=== PATIENT | female | born 1975 | race Caucasian/White ===

== ENCOUNTER 2021-03-03 08:56 | Outpatient (REF) | payer OTHER, SELFPAY ==
--- NOTE | ~2021-03-03 | US_ITS ---
EXAMINATION: LEFT LOWER EXTREMITY VENOUS ULTRASOUND CLINICAL INFORMATION: Pain COMPARISON: None TECHNIQUE: Doppler color and grayscale evaluation of the veins of the left lower extremity FINDINGS: The left common femoral, superficial femoral, and popliteal veins and visualized peroneal and posterior tibial veins in the calf are patent. There is no evidence of DVT. There is a 3.1 x 1.3 x 2 cm Coreas's cyst. US/US venous duplex LE LT IMPRESSION: No evidence of DVT. 3.1 x 1.3 x 2 cm Coreas's cyst. EXAMINATION: Left knee x-ray CLINICAL INFORMATION: Pain COMPARISON: None. TECHNIQUE: 3 views of the left knee FINDINGS: Bone alignment is normal. No fracture or dislocation is seen. The joint space is normal. There is no significant joint effusion. IMPRESSION: Unremarkable examination.
== END 2021-03-03 08:57 | disposition home or self-care (01) ==
LOC: HO.US 08:56
PROVIDERS: PCP Internal Medicine; Visit Provider Internal Medicine
DX: M79.605 Pain in left leg (principal); M79.89 Other specified soft tissue disorders; M25.562 Pain in left knee
CPT/HCPCS: 73562; 93971

== ENCOUNTER → 2021-06-17 11:25 | Outpatient (REF) | payer OTHER, SELFPAY ==
--- NOTE | 2021-06-17 11:59 | ECG_ITS ---
Test Reason : PREOP Blood Pressure : / mmHG Vent. Rate : 073 BPM Atrial Rate : 073 BPM P-R Int : 150 ms QRS Dur : 088 ms QT Int : 376 ms P-R-T Axes : 044 051 023 degrees QTc Int : 414 ms Normal sinus rhythm Normal ECG When compared with ECG of 23-APR-2013 12:21, No significant change was found Referred By: Timothy Garcia Electronically Signed By:LALITHA MATHEW
[2021-06-17 12:21] LABS: MANUAL DIFF FLAG NO
[2021-06-17 12:23] LABS: Basophils Percent Auto 0.4 % (0-2); Eosinophils Absolute Auto 0.2 X10*3/uL (0.0-0.4); Eosinophils Percent Auto 2.3 % (0-4); Hematocrit 42.4 % (37-47); Imm Gran Abs Auto 0.02 X10*3/uL (0.00-0.03); Imm Gran Pct Auto 0.2 % (0.0-0.4); Lymphocytes Absolute Auto 2.7 X10*3/uL (1.2-4.9); Lymphocytes Percent Auto 32.6 % (20-40); Mean Corpuscular Hemoglobin 28.6 pg (27.0-33.0); Mean Corpuscular Volume 86.7 fL (80-98); Mean Platelet Volume 10.4 fL (9.4-12.3); Monocytes Absolute Auto 0.6 X10*3/uL (0.1-1.2); Monocytes Percent Auto 6.8 % (2-11); Neutrophils Absolute Auto 4.8 X10*3/uL (2.0-8.3); Neutrophils Percent Auto 57.7 % (45-73); Platelet Count 293 X10*3/uL (160-400); Red Blood Count 4.89 X10*6/uL (4.20-5.50); Red Cell Distribution Width 13.5 % (11.0-16.0); White Blood Count 8.2 X10*3/uL (4.8-10.8)
[2021-06-17 12:29] LABS: Prothrombin Time 11.2 SEC (9.9-13.0)
[2021-06-17 12:32] LABS: Partial Thromboplastin Time 37.6 SEC (24.1-38.0)
[2021-06-17 12:40] LABS: Appearance Urine CLEAR; Color Urine YELLOW; Glucose Urine UA NEG (NEG); Leukocyte Esterase Urine NEG (NEG); Nitrite Urine NEG (NEG); PH 5.5 (5.0-8.0); Specific Gravity - Urine >= 1.030 (1.005-1.025); UACC Culture Trigger NO; Urine Blood NEG (NEG); Urine Ketones NEG (NEG); Urine Protein 2+ MG/DL (NEG-TRACE)
[2021-06-17 12:42] LABS: Estimated Average Glucose 105 mg/dL; Hemoglobin A1c % 5.3 %
[2021-06-17 12:55] LABS: WBC Urine 0 /HPF (0-4)
[2021-06-17 12:56] LABS: Mucus Urine 2+ /LPF; RBC Urine 0 /HPF (0); Squamous Epithelial Cell Urine 2+ /LPF
[2021-06-17 13:10] LABS: Alanine Aminotransferase 32 U/L (0-31); Albumin Level 4.4 g/dL (3.5-5.0); Alkaline Phosphatase 68 U/L (39-117); Anion Gap 10 (12-20); Aspartate Amino Transferase 26 U/L (5-31); Bilirubin Total 0.5 mg/dL (0.0-1.0); Blood Urea Nitrogen 11 mg/dL (9-16); Calcium 9.9 mg/dL (8.4-10.2); Carbon Dioxide 28 mmol/L (22-29); Chloride 106 mmol/L (96-108); Erythrocyte Sedimentation Rate 6 MM/HR (0-20); Estimated Glomerular Filt Rate > 60; Glucose Random 95 mg/dL (60-115); Potassium 4.4 mmol/L (3.3-5.1); Sodium 140 mmol/L (135-145); Total Protein 7.2 g/dL (6.5-8.0); Uric Acid 4.9 mg/dL (2.4-5.7)
[2021-06-17 13:32] LABS: TSH reflex Free T4 1.16 uIU/mL (0.32-4.0)
== END ==
LOC: HO.CARD 11:25
PROVIDERS: PCP Internal Medicine; Visit Provider Internal Medicine
DX: Z01.818 Encounter for other preprocedural examination (principal); I10 Essential (primary) hypertension; M25.562 Pain in left knee; M79.605 Pain in left leg; M79.89 Other specified soft tissue disorders; R73.01 Impaired fasting glucose
CPT/HCPCS: 36415; 80053; 81001; 83036; 84443; 84550; 85025; 85610; 85652; 85730; 93005

== ENCOUNTER → 2021-07-13 10:18 | Outpatient (BNVA) | payer OTHER, SELFPAY | PROVIDERS: PCP Internal Medicine; Visit Provider Nurse Practitioner Family | DX: M51.36 Other intervertebral disc degeneration, lumbar region (principal); M79.7 Fibromyalgia | CPT/HCPCS: 99212 ==

== ENCOUNTER → 2022-06-07 09:49 | Outpatient (REF) | payer OTHER, SELFPAY | LOC: HO.SL 09:49 | PROVIDERS: PCP Internal Medicine; Visit Provider Nurse Practitioner Family | DX: G47.33 Obstructive sleep apnea (adult) (pediatric) (principal); G47.00 Insomnia, unspecified; E66.01 Morbid (severe) obesity due to excess calories; Z68.41 Body mass index [BMI] 40.0-44.9, adult; R53.83 Other fatigue | CPT/HCPCS: 95806 ==

== ENCOUNTER → 2022-07-05 09:44 | Outpatient (BNVA) | payer OTHER, SELFPAY | PROVIDERS: PCP Internal Medicine; Visit Provider Internal Medicine | DX: G47.33 Obstructive sleep apnea (adult) (pediatric) (principal); E66.01 Morbid (severe) obesity due to excess calories; F17.210 Nicotine dependence, cigarettes, uncomplicated; Z68.41 Body mass index [BMI] 40.0-44.9, adult | CPT/HCPCS: 99202 ==

== ENCOUNTER 2022-07-19 10:14 | Outpatient (REF) | payer OTHER, SELFPAY ==
[2022-07-19 10:31] LABS: MANUAL DIFF FLAG NO
[2022-07-19 11:50] LABS: Estimated Average Glucose 108 mg/dL; Hemoglobin A1c % 5.4 %
[2022-07-19 11:51] LABS: Basophils Percent Auto 0.5 % (0-2); Eosinophils Absolute Auto 0.1 X10*3/uL (0.0-0.4); Eosinophils Percent Auto 1.7 % (0-4); Hematocrit 41.3 % (37.0-47.0); Hemoglobin 13.7 g/dl (12.0-16.0); Imm Gran Abs Auto 0.04 X10*3/uL (0.00-0.03); Imm Gran Pct Auto 0.5 % (0.0-0.4); Lymphocytes Absolute Auto 2.7 X10*3/uL (1.2-4.9); Lymphocytes Percent Auto 33.5 % (20-40); Mean Corpuscular HGB Conc 33.2 g/dl (31.0-35.0); Mean Corpuscular Hemoglobin 28.5 pg (27.0-33.0); Mean Corpuscular Volume 85.9 fL (80.0-98.0); Mean Platelet Volume 10.8 fL (9.4-12.3); Monocytes Absolute Auto 0.4 X10*3/uL (0.1-1.2); Monocytes Percent Auto 4.4 % (2-11); Neutrophils Absolute Auto 4.8 x10*3/uL (2.0-8.3); Neutrophils Percent Auto 59.4 % (45-73); Platelet Count 306 X10*3/uL (160-400); Red Blood Count 4.81 X10*6/uL (4.20-5.50); Red Cell Distribution Width 13.2 % (11.0-16.0); White Blood Count 8.1 X10*3/uL (4.8-10.8)
[2022-07-19 11:53] LABS: Appearance Urine Cloudy; Color Urine Yellow; Glucose Urine UA Negative (Negative); Leukocyte Esterase Urine Negative (Negative); Nitrite Urine Negative (Negative); PH 5.5 (5.0-9.0); Specific Gravity - Urine 1.025 (1.005-1.025); UMIC TRIGGER UACC YES; Urine Blood Negative (Negative); Urine Ketones Negative (Negative); Urine Protein 100 (2+) mg/dL (Neg-Trace)
[2022-07-19 12:03] LABS: Bacteria Urine 4+ (None Seen); Hyaline Casts Urine 0-2 /LPF (0-2); RBC Urine 0-2 /HPF (0-2); Squamous Epithelial Cell Urine >20 /HPF (0-2); UACC Culture Trigger YES
[2022-07-19 12:56] LABS: Alanine Aminotransferase 13 U/L (0-31); Albumin Level 4.3 g/dL (3.5-5.0); Alkaline Phosphatase 59 U/L (39-117); Anion Gap 15 (12-20); Aspartate Amino Transferase 13 U/L (5-31); Bilirubin Total 0.3 mg/dL (0.0-1.0); Blood Urea Nitrogen 9 mg/dL (9-16); C Reactive Protein 0.15 mg/dL (< or = 0.50); Calcium 9.5 mg/dL (8.4-10.2); Carbon Dioxide 27 mmol/L (22-29); Chloride 105 mmol/L (96-108); Cholesterol 136 mg/dL; Estimated Glomerular Filt Rate > 60; Glucose Fasting 127 mg/dL (60-99); HDL Cholesterol 32 mg/dL; Potassium 4.5 mmol/L (3.3-5.1); Rheumatoid Factor < 15.0 IU/mL (<15.0); Sodium 142 mmol/L (135-145); Total Protein 7.1 g/dL (6.5-8.0); Triglycerides 420 mg/dL
[2022-07-19 13:00] LABS: TSH reflex Free T4 1.05 uIU/mL (0.32-4.0); Vitamin D 25-OH Total 25.5 ng/mL (>30)
[2022-07-19 13:06] LABS: Erythrocyte Sedimentation Rate 6 MM/HR (0-20)
[2022-07-19 14:06] LABS: Folate 14.5 ng/mL (> or = 4.0); Vitamin B12 377 pg/mL (200-900)
[2022-07-21 12:37] LABS: Anti Nuclear Antibody Screen NEGATIVE (NEGATIVE)
== END 2022-07-19 10:15 | disposition home or self-care (01) ==
LOC: HO.LAB 10:14
PROVIDERS: PCP Internal Medicine; Visit Provider Internal Medicine
DX: Z13.29 Encounter for screening for other suspected endocrine disorder (principal); Z13.220 Encounter for screening for lipoid disorders; E11.9 Type 2 diabetes mellitus without complications; M79.7 Fibromyalgia; M25.50 Pain in unspecified joint; I10 Essential (primary) hypertension
CPT/HCPCS: 36415; 80053; 80061; 81001; 82306; 82607; 82746; 83036; 84443; 85025; 85652; 86038; 86039; 86140; 86431; 87086

== ENCOUNTER → 2022-10-27 09:16 | Outpatient (BNVA) | payer OTHER, SELFPAY | PROVIDERS: PCP Internal Medicine; Visit Provider Internal Medicine Rheumatology | DX: M51.36 Other intervertebral disc degeneration, lumbar region (principal); M79.641 Pain in right hand; M79.642 Pain in left hand; M79.7 Fibromyalgia | CPT/HCPCS: 99202 ==

== ENCOUNTER 2022-10-27 11:02 | Outpatient (REF) | payer OTHER, SELFPAY ==
[2022-10-27 13:57] LABS: MANUAL DIFF FLAG NO
[2022-10-27 13:59] LABS: Basophils Absolute Auto 0.1 X10*3/uL (0.0-0.2); Basophils Percent Auto 0.6 % (0-2); Eosinophils Absolute Auto 0.2 X10*3/uL (0.0-0.4); Eosinophils Percent Auto 2.3 % (0-4); Hematocrit 45.6 % (37.0-47.0); Hemoglobin 14.8 g/dl (12.0-16.0); Imm Gran Abs Auto 0.04 X10*3/uL (0.00-0.03); Imm Gran Pct Auto 0.5 % (0.0-0.4); Lymphocytes Percent Auto 35.7 % (20-40); Mean Corpuscular HGB Conc 32.5 g/dl (31.0-35.0); Mean Corpuscular Volume 86.4 fL (80.0-98.0); Mean Platelet Volume 10.7 fL (9.4-12.3); Monocytes Absolute Auto 0.5 X10*3/uL (0.1-1.2); Monocytes Percent Auto 6.4 % (2-11); Neutrophils Absolute Auto 4.5 x10*3/uL (2.0-8.3); Neutrophils Percent Auto 54.5 % (45-73); Platelet Count 316 X10*3/uL (160-400); Red Blood Count 5.28 X10*6/uL (4.20-5.50); Red Cell Distribution Width 12.9 % (11.0-16.0); White Blood Count 8.3 X10*3/uL (4.8-10.8)
[2022-10-27 14:17] LABS: C Reactive Protein 0.15 mg/dL (< or = 0.50)
[2022-10-27 14:44] LABS: Erythrocyte Sedimentation Rate 5 MM/HR (0-20)
== END 2022-10-27 11:03 | disposition home or self-care (01) ==
LOC: HO.10HDL 11:02
PROVIDERS: Visit Provider Internal Medicine Rheumatology
DX: M79.641 Pain in right hand (principal); M79.642 Pain in left hand; R20.0 Anesthesia of skin; M25.50 Pain in unspecified joint; M51.36 Other intervertebral disc degeneration, lumbar region; M79.7 Fibromyalgia; Z79.899 Other long term (current) drug therapy
CPT/HCPCS: 36415; 85025; 85652; 86140

== ENCOUNTER 2022-11-14 10:58 | Outpatient (REF) | payer OTHER, SELFPAY ==
[2022-11-14 11:45] LABS: MANUAL DIFF FLAG NO
[2022-11-14 11:57] LABS: Basophils Percent Auto 0.5 % (0-2); Eosinophils Absolute Auto 0.2 X10*3/uL (0.0-0.4); Eosinophils Percent Auto 2.5 % (0-4); Hematocrit 43.4 % (37.0-47.0); Imm Gran Abs Auto 0.03 X10*3/uL (0.00-0.03); Imm Gran Pct Auto 0.4 % (0.0-0.4); Lymphocytes Absolute Auto 2.8 X10*3/uL (1.2-4.9); Lymphocytes Percent Auto 35.8 % (20-40); Mean Corpuscular HGB Conc 32.3 g/dl (31.0-35.0); Mean Corpuscular Hemoglobin 27.8 pg (27.0-33.0); Mean Corpuscular Volume 86.3 fL (80.0-98.0); Mean Platelet Volume 10.3 fL (9.4-12.3); Monocytes Absolute Auto 0.5 X10*3/uL (0.1-1.2); Monocytes Percent Auto 5.8 % (2-11); Neutrophils Absolute Auto 4.2 x10*3/uL (2.0-8.3); Platelet Count 300 X10*3/uL (160-400); Red Blood Count 5.03 X10*6/uL (4.20-5.50); Red Cell Distribution Width 13.1 % (11.0-16.0); White Blood Count 7.7 X10*3/uL (4.8-10.8)
[2022-11-14 12:31] LABS: Troponin-I High Sensitivity < 3.5 ng/L (<3.5-17.0)
[2022-11-14 12:34] LABS: Alanine Aminotransferase 24 U/L (0-31); Albumin Level 4.4 g/dL (3.5-5.0); Alkaline Phosphatase 62 U/L (39-117); Anion Gap 12 (12-20); Aspartate Amino Transferase 21 U/L (5-31); Bilirubin Total 0.5 mg/dL (0.0-1.0); Blood Urea Nitrogen 14 mg/dL (9-16); Calcium 10.1 mg/dL (8.4-10.2); Carbon Dioxide 28 mmol/L (22-29); Chloride 106 mmol/L (96-108); Estimated Glomerular Filt Rate > 60; Glucose Random 97 mg/dL (60-115); Potassium 4.2 mmol/L (3.3-5.1); Sodium 142 mmol/L (135-145); Total Protein 7.1 g/dL (6.5-8.0)
[2022-11-14 12:50] LABS: Insulin 37 uU/mL (2-29); TSH reflex Free T4 0.91 uIU/mL (0.32-4.0)
== END 2022-11-14 10:59 | disposition home or self-care (01) ==
LOC: HO.LAB 10:58
PROVIDERS: PCP Internal Medicine; Visit Provider Internal Medicine
DX: R07.9 Chest pain, unspecified (principal); R06.02 Shortness of breath; I10 Essential (primary) hypertension; E78.00 Pure hypercholesterolemia, unspecified; E16.2 Hypoglycemia, unspecified; G47.33 Obstructive sleep apnea (adult) (pediatric); E66.01 Morbid (severe) obesity due to excess calories; F17.200 Nicotine dependence, unspecified, uncomplicated; Z68.41 Body mass index [BMI] 40.0-44.9, adult; Z79.899 Other long term (current) drug therapy
CPT/HCPCS: 36415; 80053; 83525; 84443; 84484; 85025; 99212

== ENCOUNTER 2022-12-13 10:54 | Outpatient (RCR) | payer OTHER, SELFPAY | END 2023-04-13 13:15 | disposition home or self-care (01) | LOC: HO.PT 10:54 | PROVIDERS: PCP Internal Medicine; Visit Provider Internal Medicine Rheumatology | DX: M51.36 Other intervertebral disc degeneration, lumbar region (principal) ==

== ENCOUNTER 2023-07-19 09:40 | Outpatient (AMB) | payer OTHER, SELFPAY ==
[2023-07-19 09:44] VITALS: BP 122/80; PULSE 87; O2SAT 99; BMI 40.7
--- NOTE | 2023-07-19 09:44 | MHC.PC.OV ---
Vital Signs 07/19/23 09:44 Height 5 ft 5 in Weight 244 lb 8 oz BMI 40.7 BP 122/80 Blood Pressure Location Lt brachial Position Sitting Pulse 87 Pulse Source Pulse Oximeter Pulse Oximetry (%) 99 Oxygen Delivery Method Room Air Intake Visit Reasons: 3mth f/u Magnetic Resonance Imaging Director Required: No Accompanied by: Self / Same As Patient Allergies acetaminophen [From Vicodin] Allergy (Unknown, Verified 07/19/23 10:19) nausea hydrocodone [From Vicodin] Allergy (Unknown, Verified 07/19/23 10:19) nausea Anesthesia S/I-40 Allergy (Unknown, Uncoded 07/19/23 10:19) vomiting Medication List - Last Reconciled 07/19/23 by Timothy Garcia MD clonazepam (Klonopin) 0.5 mg PO BID PRN 30 days diclofenac sodium 1% (Arthritis Pain (diclofenac)) 2 grams topical QID gabapentin 100 mg PO BEDTIME 30 days hydroxyzine HCl 50 mg PO DAILY ibuprofen 800 mg PO TID PRN 30 days metoprolol tartrate 50 mg PO BID oxcarbazepine 300 mg PO BID quetiapine ER 300 mg PO BEDTIME sertraline 50 mg PO DAILY tramadol Take 1 tablet 1 to 2 times a day as needed for increased pain; 15 days Tobacco use date assessed: 07/19/23 Dental Screening Dental Screen Date: 07/19/23 Did you have a dental visit in the last 12 months?: Yes Did you have a dental problem in the last 6 months where you did not have access to dental care?: No Was dental information given to patient?: Patient has dentist HPI 3mth f/u HPI Details Patient comes in today for her follow up visit She continues to complain of increased and diffuse pain and would like to get her Tramadol Rx refilled again today States that she often wakes up in the morning lately in severe pain and practically has to roll herself out of bed to get up Relates increased pain over her lower back, over both hips and both knees as well as in both hands Notes that she has also been dropping things at times lately when she is holding them - hands feel numb often and she is concerned whether what she is experiencing may be indicative of possible MS or not States that she cannot sit or stand without getting up and moving around for long periods of time because of her joint pains Is also still experiencing on and off chest pressure and discomfort Did not get to see cardiology as scheduled last April 2023 as she states that she got busy and had to cancel her appointment then; has since been rescheduled to 08/01/23 but states that she recently received a notice from cardiology to give them a call to reschedule her appt again as the doctor scheduled to see her will reportedly not be available at that time She denies any increased SOB lately Still feels nauseous often when she wakes up in the morning and her stomach would also be hurting at times States that all of these would ease up quickly once she gets something to eat so she is concerned about her blood sugar; recalls that she was a diabetic before but has not been on any medications for her blood sugar lately No vomiting and no change in bowel habits noted [facility] Medical History Mixed hyperlipidemia Lumbar degenerative disc disease Morbid obesity with BMI of 40.0-44.9, adult Smoker Blurring of vision Urinary frequency Fatigue Pain and swelling of left lower extremity Left knee pain Surgical History History of cholecystectomy History of tonsillectomy Family History Father Medical history unknown Mother Lung cancer Sister Bipolar 1 disorder Family/Other Breast cancer Hypertension Asthma Social History Housing: Apartment Alcohol intake: never Patient Tobacco Use Status: Current everyday Tobacco user Cigarettes Per Day: 9 e-Cigarette/Vaping Use: Never Used Second Hand Smoke Exposure: Yes service: No Current occupational status: disabled Cognitive needs: No Hearing needs: No Vision needs: No Questionnaire PHQ-9 Over the last 2 weeks, how often have you been bothered by any of the following problems? 1. Little interest or pleasure in doing things: nearly every day 2. Feeling down, depressed, or hopeless: nearly every day 3. Trouble falling or staying asleep, or sleeping too much: nearly every day 4. Feeling tired or having little energy: nearly every day 5. Poor appetite or overeating: nearly every day 6. Feeling bad about yourself - or that you are a failure or have let yourself or your family down: nearly every day 7. Trouble concentrating on things, such as reading the newspaper or watching television: nearly every day 8. Moving or speaking so slowly that other people could have noticed. Or the opposite - being so fidgety or restless that you have been moving around a lot more than usual: nearly every day 9. Thoughts that you would be better off or of hurting yourself in some way: not at all Total score: 24 Depression Screening Interpretation: Positive Depression Screening Follow-up: Existing condition and In treatment Depression Screening Done: Yes 38323 - PHQ-9 Billing: Yes Source: Developed by Drs. Johnson Baum, Linda Beltran, Ayush Garcia and colleagues, with an educational mirna from [employer]. Thrive Questionnaire Date Thrive assessed: 07/19/23 I am a: Patient What is your living situation today?: I have a steady place to live Within the past 12 months, did the food you bought not last and you didn't have the money to get more?: Never true Within the past 12 months, did you worry whether your food would run out before you got money to buy more?: Never true Do you have trouble paying for medicines?: No Do you have trouble getting transportation to medical appointments?: No Do you have trouble paying your heating and electricity bill?: No Do you have trouble taking care of your child, family member or friend?: No Do you have trouble with day-to-day activities such as bathing, preparing meals, shopping, managing finances, etc.?: No Are you currently unemployed and looking for a job?: No Are you interested in more education?: No Please select the resources that you would like help with: None Currently or been in a relationship where the following occur: no concerns reported AUDIT C Alcohol Use Questionnaire (AUDIT-C) 1. How often do you have a drink containing alcohol?: Never 3. How often do you have six or more drinks on one occasion?: Never Total Score: 0 Score Reviewed/Action Taken: Yes AMISH-7 AMB Questionnaire AMISH-7 Date AMISH - 7 assessed: 07/19/23 Feeling nervous, anxious, or on edge: 3 = Nearly every day Not being able to stop or control worryin = Nearly every day Worrying too much about different things: 3 = Nearly every day Trouble relaxin = Nearly every day Being so restless that it is hard to sit still: 3 = Nearly every day Becoming easily annoyed or irritable: 3 = Nearly every day Feeling afraid as if something awful might happen: 3 = Nearly every day Total AMISH-7 score (0-4 normal; 5-9 mild; 10-14 moderate; 15-21 severe): 21 Source: Developed by Drs. Johnson Baum, Linda Beltran, Ayush Garcia and colleagues, with an educational mirna from [employer]. Review of Systems Const Reports body aches (diffuse - increasing lately), Denies chills, Reports fatigue, Denies fever(s) and Denies headache(s) ENT Denies dysphagia, Denies dizziness, Denies otalgia, Denies headache(s), Reports neck pain, Denies odynophagia and Denies sore throat Card Denies chest pain (but (+) pressure/discomfort at times), Denies rapid heart rate, Denies irregular heart rhythm, Denies palpitations and Reports dyspnea on exertion (mild) Resp Denies cough, Reports dyspnea on exertion (mild) and Denies wheezing GI Reports abdominal pain (on and off, usually in the morning - see HPI), Denies bloating, Denies change in bowel habits, Denies constipation, Denies dysphagia, Denies heartburn, Denies diarrhea, Reports nausea (recurrent, mostly in AM when she wakes up - see HPI), Denies odynophagia and Denies vomiting Denies hematuria, Denies urinary frequency, Denies nocturia, Denies dysuria, Denies urinary incontinence and Denies urinary urgency Musc Reports back pain, Reports myalgias (diffuse), Reports arthralgias (involving multiple joints, especially over both hips and both knees), Denies joint swelling, Reports muscle weakness (on and off in both hands ), Reports neck pain, Reports numbness (on and off in both hands) and Reports tingling Skin/Breast Denies rash Neuro Denies dizziness, Denies headache(s), Reports numbness (on and off in both hands), Reports tingling and Denies paresthesias Psych Reports anxiety and Reports depression Endo Reports fatigue and Denies palpitations Alli/Lymph Denies easy bruising Aller/Immun Denies wheezing Physical exam (Primary Care) Vital Signs: Last Vital Signs Pulse 87 07/19/23 09:44 BP 122/80 07/19/23 09:44 Pulse Ox 99 07/19/23 09:44 Oxygen Delivery Method Room Air 07/19/23 09:44 BMI result Body Mass Index 40.7 Tobacco/Smoking Status: Tobacco use Status Tobacco use date assessed 07/19/23 07/19/23 09:45 Patient Tobacco Use Status Current everyday Tobacco 07/19/23 09:45 e-Cigarette/Vaping Use Never Used 07/19/23 09:45 PHQ-9: PHQ-9 Score PHQ-9: Total score 24 07/19/23 10:17 Depression Screening Interpretation: Positive Depression Screening Follow-up: Existing condition and In treatment Thrive Assessment: Date of Thrive Assessment Date Thrive assessed 07/19/23 07/19/23 09:45 Currently or been in a relationship where the following occur: no concerns reported Const General: no acute distress and alert HENMT Ears: TM's normal bilaterally and EAC's normal Throat: Yes posterior oropharynx normal and Yes tonsils normal (no TP congestion) Neck Neck: Yes no lymphadenopathy and Yes supple Thyroid: Thyroid normal Resp Auscultation: clear to auscultation bilaterally, no rales and no wheezes Cardio Rate: regular rate Rhythm: regular rhythm Heart sounds: no murmurs GI Palpation (GI): Soft to palpation and nontender Auscultation: normal bowel sounds General: Yes no CVA tenderness Back/Spine/Pelvis Back: no CVA tenderness Thoracic/Lumbar Spine: lumbar spinal tenderness (mild) Skin Rashes: no rashes Extrem General: Yes no clubbing, cyanosis or edema Right upper extremity: shoulder/upper arm Details: tenderness (diffusely over the scapular area) Left upper extremity: shoulder/upper arm Details: tenderness (diffusely over the scapular areas) Right lower extremity: hip/thigh Details: tenderness Location: of the hip and knee Details: tenderness; no swelling Left lower extremity: hip/thigh Details: tenderness Location: of the hip and knee Details: tenderness; no swelling Results AMB Hemoglobin A1c AMB Hemoglobin A1c 5.7 % Last Edit by Venecia Newsome on 07/19/23 10:18 Assessment and Plan Assessment & Plan (1) Mixed hyperlipidemia: Code(s): E78.2 - Mixed hyperlipidemia Plan: Patient still has not gotten her follow up labs done yet (has not had her lipids checked since August 2022)- states that she will try to get them done TALYA Her serum triglyceride level were significantly elevated over 400 mg/dl on her labs when last checked a year ago Reinforced low cholesterol diet (2) Chest pain: Code(s): R07.9 - Chest pain, unspecified Qualifiers: Chest pain type: unspecified Qualified Code(s): R07.9 - Chest pain, unspecified Plan: She has been referred to cardiology for further evaluation and management (although she has been advised that her chest pains may not necessarily be cardiac in etiology) - was scheduled to be seen by cardiology on 04/27/2023 but she could not keep her appt then and is now scheduled to be seen on 08/01/23 although she reportedly received a notice from cardiology recently to give them a call to reschedule her appt again as the doctor scheduled to see her will not be available at that time (3) Lumbar degenerative disc disease: Code(s): M51.36 - Other intervertebral disc degeneration, lumbar region Plan: Lumbar spine MRI done back in 2019 revealed (+) moderate facet arthropathy and a posterior disc protrusion at L4-L5 that extends into the neural foramina but there is no nerve root impingement and no central canal stenosis. There were also milder spondylitic and facet arthropathic changes at other levels Can consider repeat a lumbar spine MRI if her symptoms get worse but with insurance restrictions nowadays, she may have to trial and fail physical therapy before that will be approved Reinforced activity and weight-lifting restrictions Will at least send her for repeat lumbar spine x-rays for further evaluation and to update her imaging Continue Tramadol 50 mg 1 to 2 times a day as needed for pain for now - Rx refilled Was seen by pain management months ago but patient reportedly refused any interventional Tx and was advised that without trying those, she cannot be evaluated for eligibility for the opioid Rx program She has inquired about medical marijuana as an option and has been advised that this is something she will have to pursue on her own as we are not in any way involved with medical marijuana management; was also advised that most insurances do not cover medical marijuana and she will most likely have to pay [id number] for all of these if she is to get into this Was recommended by rheumatology recently to consider Gabapentin, even if it is just at bedtime, and to speak to her PCP or psychiatry regarding this - she remains very hesitant to trying Gabapentin at this time but is now agreeable to try Gabapentin at bedtime - Rx sent (4) Benign essential hypertension: Code(s): I10 - Essential (primary) hypertension Plan: Reinforced low sodium diet - goal is systolic BP of at least 120 to 130 mm or less Continue Metoprolol 50 mg BID (5) Hypoglycemia: Comment: Patient had problems with elevated blood sugars in the past (IFG) Code(s): E16.2 - Hypoglycemia, unspecified Plan: Labs done previously were significant only for an elevated insulin level - advised that this is most likely related to her weight and that exercising regularly and losing weight will help address this Have again encouraged patient to reach out to weight management again and schedule a follow up appointment States that she stopped going when she was advised that she needed to watch some videos first before they can start seeing her regularly - advised that this is part of the process and that watching the videos will actually help give her a better idea of what they have to offer her to help her lose weight more effectively (6) Impaired fasting glucose: Code(s): R73.01 - Impaired fasting glucose Plan: In-office HgbA1c done today is again normal at 5.7% HgbA1c was normal at 5.4% and at 5.3% when previously checked Reinforced low calorie/low carb diet (7) JOANN (obstructive sleep apnea): Comment: EXPECTED SHE DOES HAVE OBSTRUCTIVE SLEEP APNEA, TOTAL SLEEP TIME AHI 11.6, SHE SLEEPS IN PRONE POSITION. THE SLEEP APNEA IS RELATIVELY MILD. CPAP WAS ORDERED AND SHE TRY TO USE IT FOR A FEW NIGHTS BUT, DUE TO HER ANXIETY , SHE FEELS SUFFOCATED AND CANNOT USE IT. I THINK HER BEST BET IS JUST TO LOSE WEIGHT, EVEN IF SHE COULD LOSE 10-15 LB OF WEIGHT HER SLEEP APNEA WILL IMPROVE SIGNIFICANTLY. BECAUSE OF NON USAGE, HER DEVICE CAN BE TAKEN OUT OF HER HOUSE. Code(s): G47.33 - Obstructive sleep apnea (adult) (pediatric) Plan: Was started on CPAP therapy by Dr. Downey but she appears to be having trouble tolerating the mask used Follow up with Sleep Medicine as scheduled (8) Fibromyalgia: Code(s): M79.7 - Fibromyalgia Plan: Has been advised by rheumatology recently that a lot of her symptoms, including her myalgia, are consistent with fibromyalgia Has been advised to consider Gabapentin - she remains very hesitant to do so but is now agreeable to trying Gabapentin at bedtime Is again encouraged to exercise regularly to help manage her fibromyagia symptoms (9) Paresthesia of hand, bilateral: Code(s): R20.2 - Paresthesia of skin Plan: May be due to CTS or cervical radiculopathy Will send her for EMG & NCV for further evaluation (10) Bilateral knee pain: Code(s): M25.561 - Pain in right knee; M25.562 - Pain in left knee Qualifiers: Chronicity: chronic Qualified Code(s): M25.561 - Pain in right knee; M25.562 - Pain in left knee; G89.29 - Other chronic pain Plan: Will send patient for x-rays of both knees for further evaluation Suspect that she most likely has some OA or degenerative changes in her knee joints and may need to see orthopedics at some point (11) Bilateral hip pain: Code(s): M25.551 - Pain in right hip; M25.552 - Pain in left hip Plan: Will send her for x-rays of both hips for further evaluation (12) Insomnia: Code(s): G47.00 - Insomnia, unspecified Qualifiers: Insomnia type: unspecified Qualified Code(s): G47.00 - Insomnia, unspecified Plan: Sleep hygiene reinforced Continue Trazodone 50 mg Q HS PRN (13) Anxiety: Code(s): F41.9 - Anxiety disorder, unspecified Plan: Continue Clonazepam 0.5 mg BID PRN and Hydroxyzine 50 mg PRN (14) Bipolar affective disorder: Code(s): F31.9 - Bipolar disorder, unspecified Qualifiers: Active/Remission status: currently active Current bipolar episode type: mixed Current episode severity: unspecified Qualified Code(s): F31.60 - Bipolar disorder, current episode mixed, unspecified Plan: Continue Sertraline 50 mg QD, Quetiapine 300 mg Q HS and Oxcarbazepine 300 mg BID Follow up with psychiatry as scheduled (15) Smoker: Comment: SHE CLAIMS THAT SHE IS SMOKING 7-10 CIGARETTES A DAY AND TRYING TO CUT DOWN. AGAIN COUNSELED THAT SHE SHOULD TRY TO QUIT COMPLETELY. Code(s): F17.200 - Nicotine dependence, unspecified, uncomplicated Plan: Counseled again on smoking cessation (16) Morbid obesity with BMI of 40.0-44.9, adult: Comment: DISCUSSED WITH THE PATIENT ABOUT HER WEIGHT ISSUE. SHE IS WELL AWARE OF IT. I ADVISED ABOUT DIET AND EXERCISE. SHE NEEDS TO JOIN A WEIGHT MANAGEMENT PROGRAM, AND TELLS ME TODAY THAT SHE IS PLANNING TO JOIN THE PROGRAM, AND WILL BE WILLING TO UNDERGO BARIATRIC SURGERY. Code(s): E66.01 - Morbid (severe) obesity due to excess calories; Z68.41 - Body mass index [BMI] 40.0-44.9, adult Plan: Reinforced diet/exercise as tolerated/lose weight Has been referred to weight management for consideration for lap banding, per patient's request Patient states that she initially went to weight management but stopped going when she was advised that she needs to watch some videos first before they can continue to see her Advised that this is just part of the process and that watching videos can actually provide some clear insight and a better understanding of what they have to offer her Plan Follow up in 3 months Orders: Orders XR knee LT 4V Today M25.561 - Pain in right knee, M25.562 - Pain in left knee XR knee RT 4V Today M25.561 - Pain in right knee, M25.562 - Pain in left knee XR hip LT min 2V Today M25.551 - Pain in right hip, M25.552 - Pain in left hip XR lumbar spine 2-3V Today M54.50 - Low back pain, unspecified AMB Hemoglobin A1c Today Z13.9 - Encounter for screening, unspecified NE electromyogram (EMG) Today R20.2 - Paresthesia of skin, R29.898 - Other symptoms and signs involving the musculoskeletal system NE nerve conduction velocity Today R20.2 - Paresthesia of skin, R29.898 - Other symptoms and signs involving the musculoskeletal system XR hip RT min 2V Today M25.551 - Pain in right hip, M25.552 - Pain in left hip Medications: New gabapentin 100 mg PO BEDTIME 30 days 30 caps 1RF M79.7 - Fibromyalgia Refilled tramadol Take 1 tablet 1 to 2 times a day as needed for increased pain; 15 days 30 tabs 1RF pain M25.562 - Pain in left knee Coding Level of Care Code Est Pt Level 4 (43083) Diagnoses Mixed hyperlipidemia E78.2 Chest pain, unspecified type R07.9 Chest pain type: unspecified Lumbar degenerative disc disease M51.36 Benign essential hypertension I10 Hypoglycemia E16.2 Impaired fasting glucose R73.01 JOANN (obstructive sleep apnea) G47.33 Fibromyalgia M79.7 Paresthesia of hand, bilateral R20.2 Chronic pain of both knees M25.561; M25.562; G89.29 Chronicity: chronic Bilateral hip pain M25.551; M25.552 Insomnia, unspecified type G47.00 Insomnia type: unspecified Anxiety F41.9 Bipolar affective disorder, current episode mixed, current episode severity unspecified F31.60 Active/Remission status: currently active Current bipolar episode type: mixed Current episode severity: unspecified Smoker F17.200 Morbid obesity with BMI of 40.0-44.9, adult E66.01; Z68.41
== END 2023-07-19 10:20 | disposition home or self-care (01) ==
PROVIDERS: PCP Internal Medicine; Visit Provider Internal Medicine
DX: R73.01 Impaired fasting glucose (principal)
CPT/HCPCS: 83036; 99214

== ENCOUNTER 2023-07-19 10:29 | Outpatient (REF) | payer OTHER, SELFPAY | END 2023-07-19 10:30 | disposition home or self-care (01) | LOC: HO.XRAY 10:29 | PROVIDERS: PCP Internal Medicine; Visit Provider Internal Medicine | DX: Z13.89 Encounter for screening for other disorder (principal) ==

== ENCOUNTER 2023-08-23 10:07 | Outpatient (REF) | payer OTHER, SELFPAY | END 2023-08-23 10:08 | disposition home or self-care (01) | LOC: HO.NEURO 10:07 | PROVIDERS: PCP Internal Medicine; Visit Provider Internal Medicine | DX: R20.2 Paresthesia of skin (principal); R29.898 Other symptoms and signs involving the musculoskeletal system | CPT/HCPCS: 95885; 95913 ==

== ENCOUNTER 2023-08-23 10:54 | Outpatient (REF) | payer OTHER, SELFPAY ==
--- NOTE | ~2023-08-23 | XR_ITS ---
EXAMINATION: XR LUMBOSACRAL SPINE CLINICAL INFORMATION: Lumbar region COMPARISON: None available. TECHNIQUE: Three views of the lumbosacral spine. FINDINGS: There is exaggerated lordosis of lumbar spine. Vertebral bodies are well aligned and intervertebral discs are preserved. Pedicles are intact. There is no evidence of spondylolysis or listhesis. XR/XR lumbar spine 2-3V IMPRESSION: Exaggerated lordosis of lumbar spine.
--- NOTE | ~2023-08-23 | XR_ITS ---
EXAMINATION: XR HIP, RIGHT CLINICAL INFORMATION: Pain in right hip COMPARISON: None available. TECHNIQUE: Two views of the right hip. FINDINGS: No fracture. Alignment is anatomic. Hip joint space is maintained. Soft tissues are unremarkable. XR/XR hip RT min 2V IMPRESSION: Normal right hip.
--- NOTE | ~2023-08-23 | XR_ITS ---
EXAMINATION: XR KNEE, RIGHT CLINICAL INFORMATION: Right knee pain COMPARISON: 06/26/2018 TECHNIQUE: Four views of the right knee. FINDINGS: There is stable osseous fragment adjacent to the medial femoral condyle consistent with Janell-Stieda fragment. The rest of knee is unremarkable without joint effusion fractures or degenerative changes. XR/XR knee RT 4V IMPRESSION: Chronic Janell-Stieda complex
--- NOTE | ~2023-08-23 | XR_ITS ---
EXAMINATION: XR KNEE, LEFT CLINICAL INFORMATION: Left knee pain COMPARISON: 06/26/2018 TECHNIQUE: Four views of the left knee. FINDINGS: No fracture or joint effusion. Alignment is anatomic. Joint spaces are maintained. No abnormal soft tissue calcification. XR/XR knee LT 4V IMPRESSION: Normal left knee.
== END 2023-08-23 10:55 | disposition home or self-care (01) ==
LOC: HO.XRAY 10:54
PROVIDERS: PCP Internal Medicine; Visit Provider Internal Medicine
DX: M25.561 Pain in right knee (principal); M25.562 Pain in left knee; M25.551 Pain in right hip; M25.552 Pain in left hip; M54.50 Low back pain, unspecified
CPT/HCPCS: 72100; 73502; 73564

== ENCOUNTER 2024-02-09 10:35 | Outpatient (AMB) | payer OTHER, SELFPAY ==
--- NOTE | 2024-02-09 10:42 | A.OFFPC_ITS ---
Vital Signs 02/09/24 10:45 Height 5 ft 5 in Weight 248 lb 6 oz BMI 41.3 BP 120/74 Blood Pressure Location Lt brachial Position Sitting Intake Visit Reasons: diffuse pain/fibromyalgia, IFG, lumbar DDD Intake Note: Patient is here to follow up on Diffuse pain/Fibromyalgia, IFG,, LDDD. Herb Grower Required: No Rotor Plate Washer: Present Accompanied by: Daughter Allergies acetaminophen [From Vicodin] Allergy (Unknown, Verified 02/09/24 12:31) nausea hydrocodone [From Vicodin] Allergy (Unknown, Verified 02/09/24 12:31) nausea Anesthesia S/I-40 Allergy (Unknown, Uncoded 02/09/24 12:31) vomiting Medication List - Last Reconciled 02/09/24 by Timothy Garcia MD aripiprazole 20 mg PO BEDTIME PRN clonazepam (Klonopin) 0.5 mg PO BID PRN 30 days diclofenac sodium 1% (Arthritis Pain (diclofenac)) 2 grams topical QID gabapentin 100 mg PO BEDTIME 30 days hydroxyzine HCl 50 mg PO DAILY ibuprofen 800 mg PO TID PRN 30 days [INSPIRE As directed] metoprolol tartrate 50 mg PO BID oxcarbazepine 300 mg PO BID quetiapine ER 300 mg PO BEDTIME Tobacco use date assessed: 02/09/24 Dental Screening Dental Screen Date: 02/09/24 Did you have a dental visit in the last 12 months?: No Did you have a dental problem in the last 6 months where you did not have access to dental care?: No Was dental information given to patient?: No (no teeth) HPI diffuse pain/fibromyalgia, IFG, lumbar DDD HPI Details Patient comes in today for his follow up visit She continues to complain of increased and diffuse pain, including pain over her lower back, over both hips and both knees as well as in both hands and would like to know how her previous x-rays came out More recently, states that she has been experiencing increased recurrent sharp pains over her right lower back that would start just above her right buttocks and this would radiate down her buttocks into the back of her thigh - states that this has been going on for about a week now Would like to see if she can get a new MRI of her lower back done to look into this States that with all of her symptoms, she is very concerned that she may have MS as she had a family member that was recently diagnosed; would like to know if she can get checked for MS as well She is also still experiencing recurrent chest pressure and would like to get a new referral to cardiology as her previous referral has States that she was never seen when she was referred last year She is scheduled to see pain management for her low back pain next week and is finally scheduled for her EMG and MCV in a couple of weeks Adds that she has a CPAP device and has done everything she could but she just cannot tolerate using the device when she sleeps at night - would like to try getting an Rx for the Inspire device, which she feels she will be able to tolerate using for her JOANN She is also now requesting for a referral to bariatric surgery - states that she has tried everything to lose weighy unsuccessfully She denies any headaches or dizziness Denies any increased SOB No vomiting but still has on and off nausea and occasional abdominal pain in the morning as before No change in bowel habits noted PFSH Medical History Mixed hyperlipidemia Lumbar degenerative disc disease Morbid obesity with BMI of 40.0-44.9, adult Smoker Blurring of vision Urinary frequency Fatigue Pain and swelling of left lower extremity Left knee pain Surgical History History of cholecystectomy History of tonsillectomy Family History Father Medical history unknown Mother Lung cancer Sister Bipolar 1 disorder Family/Other Breast cancer Hypertension Asthma Social History Housing: Apartment Alcohol intake: never Patient Tobacco Use Status: Current everyday Tobacco user Tobacco use type: Cigarette Cigarette Packs Per Day: 0.5 Cigarettes Per Day: 9 e-Cigarette/Vaping Use: Never Used Second Hand Smoke Exposure: Yes service: No Current occupational status: disabled Cognitive needs: No Hearing needs: No Vision needs: No Questionnaire PHQ-9 Over the last 2 weeks, how often have you been bothered by any of the following problems? 1. Little interest or pleasure in doing things: not at all 2. Feeling down, depressed, or hopeless: several days (currently on medication and in treatment) 3. Trouble falling or staying asleep, or sleeping too much: not at all 4. Feeling tired or having little energy: not at all 5. Poor appetite or overeating: not at all 6. Feeling bad about yourself - or that you are a failure or have let yourself or your family down: not at all 7. Trouble concentrating on things, such as reading the newspaper or watching television: not at all 8. Moving or speaking so slowly that other people could have noticed. Or the opposite - being so fidgety or restless that you have been moving around a lot more than usual: not at all 9. Thoughts that you would be better off or of hurting yourself in some way: not at all Total score: 1 Depression Screening Interpretation: Negative Depression Screening Done: Yes 51452 - PHQ-9 Billing: Yes Source: Developed by Drs. Johnson Baum, Linda Beltran, Ayush Garcia and colleagues, with an educational mirna from [employer]. Thrive Questionnaire Date Thrive assessed: 02/09/24 I am a: Patient What is your living situation today?: I have a steady place to live Within the past 12 months, did the food you bought not last and you didn't have the money to get more?: Never true Within the past 12 months, did you worry whether your food would run out before you got money to buy more?: Never true Do you have trouble paying for medicines?: No Do you have trouble getting transportation to medical appointments?: No Do you have trouble paying your heating and electricity bill?: No Do you have trouble taking care of your child, family member or friend?: No Do you have trouble with day-to-day activities such as bathing, preparing meals, shopping, managing finances, etc.?: No Are you currently unemployed and looking for a job?: No Are you interested in more education?: No Currently or been in a relationship where the following occur: no concerns reported THRIVE Score: 0 AUDIT C Alcohol Use Questionnaire (AUDIT-C) 1. How often do you have a drink containing alcohol?: Never 3. How often do you have six or more drinks on one occasion?: Never Total Score: 0 Score Reviewed/Action Taken: Yes AMISH-7 AMB Questionnaire AMISH-7 Date AMISH - 7 assessed: 02/09/24 Feeling nervous, anxious, or on edge: 0 = Not at all Not being able to stop or control worryin = Not at all Worrying too much about different things: 0 = Not at all Trouble relaxin = Not at all Being so restless that it is hard to sit still: 0 = Not at all Becoming easily annoyed or irritable: 0 = Not at all Feeling afraid as if something awful might happen: 0 = Not at all Total AMISH-7 score (0-4 normal; 5-9 mild; 10-14 moderate; 15-21 severe): 0 Source: Developed by Drs. Johnson Baum, Linda Beltran, Ayush Garcia and colleagues, with an educational mirna from [employer]. Review of Systems Const Reports body aches (diffuse), Denies chills, Reports fatigue, Denies fever(s) and Denies headache(s) ENT Denies dysphagia, Denies dizziness, Denies otalgia, Denies headache(s), Reports neck pain, Denies odynophagia and Denies sore throat Card Denies chest pain (but (+) pressure/discomfort at times), Denies rapid heart rate, Denies irregular heart rhythm, Denies palpitations and Reports dyspnea on exertion (mild) Resp Denies cough, Reports dyspnea on exertion (mild) and Denies wheezing GI Reports abdominal pain (on and off, usually in the morning), Denies bloating, Denies change in bowel habits, Denies constipation, Denies dysphagia, Denies heartburn, Denies diarrhea, Reports nausea (recurrent, mostly in AM when she wakes up ), Denies odynophagia and Denies vomiting Denies hematuria, Denies urinary frequency, Denies nocturia, Denies dysuria, Denies urinary incontinence and Denies urinary urgency Musc Reports as per HPI, Reports back pain (increased recurrent pain over the right lower back - see HPI), Reports myalgias (diffuse), Reports arthralgias (involving multiple joints, especially over both hips and both knees), Denies joint swelling, Reports muscle weakness (on and off in both hands ), Reports neck pain, Reports numbness (on and off in both hands) and Reports tingling Skin/Breast Denies rash Neuro Denies dizziness, Denies headache(s), Reports numbness (on and off in both hands), Reports tingling and Denies paresthesias Psych Reports anxiety and Reports depression Endo Reports fatigue and Denies palpitations Alli/Lymph Denies easy bruising Aller/Immun Denies wheezing Physical exam (Primary Care) Vital Signs: Last Vital Signs BP 120/74 02/09/24 10:45 BMI result Body Mass Index 41.3 Tobacco/Smoking Status: Tobacco use Status Tobacco use date assessed 02/09/24 02/09/24 10:54 Patient Tobacco Use Status Current everyday Tobacco 02/09/24 10:54 Tobacco use type Cigarette 02/09/24 10:54 e-Cigarette/Vaping Use Never Used 02/09/24 10:54 PHQ-9: PHQ-9 Score PHQ-9: Total score 1 02/09/24 10:54 Depression Screening Interpretation: Negative Thrive Assessment: Date of Thrive Assessment Date Thrive assessed 02/09/24 02/09/24 10:54 Currently or been in a relationship where the following occur: no concerns reported Const General: no acute distress and alert HENMT Ears: TM's normal bilaterally and EAC's normal Throat: Yes posterior oropharynx normal and Yes tonsils normal (no TP congestion) Neck Neck: Yes no lymphadenopathy and Yes supple Thyroid: Thyroid normal Resp Auscultation: clear to auscultation bilaterally, no rales and no wheezes Cardio Rate: regular rate Rhythm: regular rhythm Heart sounds: no murmurs GI Palpation (GI): Soft to palpation and nontender Auscultation: normal bowel sounds General: Yes no CVA tenderness Back/Spine/Pelvis Back: no CVA tenderness Thoracic/Lumbar Spine: lumbar spinal tenderness (mild) Sacroiliac joints: on the right tender to palpation Skin Rashes: no rashes Extrem General: Yes no clubbing, cyanosis or edema Right upper extremity: shoulder/upper arm Details: tenderness (diffusely over the scapular area) Left upper extremity: shoulder/upper arm Details: tenderness (diffusely over the scapular areas) Right lower extremity: hip/thigh Details: tenderness Location: of the hip and knee Details: tenderness; no swelling Left lower extremity: hip/thigh Details: tenderness Location: of the hip and knee Details: tenderness; no swelling Results AMB Hemoglobin A1c AMB Hemoglobin A1c 5.5 % Last Edit by TAINA Menchaca on 02/09/24 10:58 Results Reviewed Results Reviewed: Laboratory Last Values Hgb A1c (Clinic) 5.5 % (4.0-6.0) 02/09/24 10:42 Assessment and Plan Assessment & Plan (1) Mixed hyperlipidemia: Code(s): E78.2 - Mixed hyperlipidemia Plan: Patient still has NOT gotten her follow up labs done yet (has not had her lipids checked since August 2022)- states that she will try to get them done TALYA Her serum triglyceride level were significantly elevated over 400 mg/dl on her labs when last checked over a year ago Reinforced low cholesterol diet (2) Chest pain: Code(s): R07.9 - Chest pain, unspecified Qualifiers: Chest pain type: unspecified Qualified Code(s): R07.9 - Chest pain, unspecified Plan: Per patient request, will refer her again to cardiology She has been referred to cardiology for further evaluation and management previously (she has been advised that her chest pains may not necessarily be cardiac in etiology) and was scheduled to be seen by cardiology on 04/27/2023 but she could not keep her appt and rescheduled her appt to 08/01/23; she then reportedly received a notice to call them up to reschedule her appt again as the doctor scheduled to see her will not be available at that time so she was never seen when referred last year (3) JOANN (obstructive sleep apnea): Comment: EXPECTED SHE DOES HAVE OBSTRUCTIVE SLEEP APNEA, TOTAL SLEEP TIME AHI 11.6, SHE SLEEPS IN PRONE POSITION. THE SLEEP APNEA IS RELATIVELY MILD. CPAP WAS ORDERED AND SHE TRY TO USE IT FOR A FEW NIGHTS BUT, DUE TO HER ANXIETY , SHE FEELS SUFFOCATED AND CANNOT USE IT. I THINK HER BEST BET IS JUST TO LOSE WEIGHT, EVEN IF SHE COULD LOSE 10-15 LB OF WEIGHT HER SLEEP APNEA WILL IMPROVE SIGNIFICANTLY. BECAUSE OF NON USAGE, HER DEVICE CAN BE TAKEN OUT OF HER HOUSE. Code(s): G47.33 - Obstructive sleep apnea (adult) (pediatric) Plan: Was started on CPAP therapy by Dr. Downey but she had trouble tolerating the mask she was using Per request, will give her an Rx for the Inspire device and she is instructed to bring this over to the company who provided her with her CPAP device Follow up with Sleep Medicine as scheduled (4) Lumbar degenerative disc disease: Code(s): M51.36 - Other intervertebral disc degeneration, lumbar region Plan: Lumbar spine MRI done back in 08/2019 revealed (+) moderate facet arthropathy and a posterior disc protrusion at L4-L5 that extends into the neural foramina but there is no nerve root impingement and no central canal stenosis. There were also milder spondylitic and facet arthropathic changes at other levels Repeat lumbar spine x-rays done in August 2023 revealed only (+) exaggerated lordosis of the lumbar spine Advised that before her insurance will approve a repeat lumbar spine MRI, she will likely have to trial and fail physical therapy first before that will be approved Reinforced activity and weight-lifting restrictions Continue Tramadol 50 mg 1 to 2 times a day as needed for pain for now - Rx refilled Was seen by pain management months ago but patient reportedly refused any interventional Tx and was advised that without trying those, she cannot be evaluated for eligibility for the opioid Rx program; she has an appointment with pain management again coming up next week She has inquired previously about medical marijuana as an option and she has been advised that this is something she will have to pursue on her own as we are not in any way involved with medical marijuana management; she was also advised that most insurances do not cover medical marijuana and she will most likely have to pay [id number] for them She was recommended by rheumatology recently to consider Gabapentin and she agreed to start this at her last appointment Continue Gabapentin 100 mg Q HS (5) Right-sided low back pain with sciatica: Code(s): M54.41 - Lumbago with sciatica, right side Qualifiers: Chronicity: acute Sciatica laterality: sciatica of right side Qualified Code(s): M54.41 - Lumbago with sciatica, right side Plan: She is advised that her right SI joint appears very tender on exam today and may be the source of her recent increased right-sided low back pain and sciatica Will send her for right sacroiliac joint x-rays for further evaluation and she is advised to try to get this done TALYA before her pain management appointment next week (6) Benign essential hypertension: Code(s): I10 - Essential (primary) hypertension Plan: Reinforced low sodium diet - goal is systolic BP of at least 120 to 130 mm or less Continue Metoprolol 50 mg BID (7) Impaired fasting glucose: Code(s): R73.01 - Impaired fasting glucose Plan: In-office HgbA1c done today is again normal at 5.5%; was previously at 5.7% HgbA1c was also normal at 5.4% and at 5.3% in the past when previously checked Reinforced low calorie/low carb diet (8) Fibromyalgia: Code(s): M79.7 - Fibromyalgia Plan: She has been advised by rheumatology last year that a lot of her symptoms, including her myalgia, are consistent with fibromyalgia She is again encouraged to exercise regularly to help manage her fibromyalgia symptoms Continue Gabapentin 100 mg Q HS She has voiced her concerns and is very anxious that a lot of her symptoms may be due to MS (see HPI) and has requested to be checked for MS - per request, will refer her to neurology for further evaluation and management and to get tested for MS if appropriate (9) Paresthesia of hand, bilateral: Code(s): R20.2 - Paresthesia of skin Plan: May be due to CTS or cervical radiculopathy She was previously sent for EMG & NCV for further evaluation and she is now scheduled to have these done in a couple of weeks (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 - Tibial collateral bursitis [Janell-Stieda], unspecified leg Qualifiers: Laterality: unspecified laterality Qualified Code(s): M76.40 - Tibial collateral bursitis [Janell-Stieda], unspecified leg Plan: X-rays of both knees done late last year revealed findings of Chronic Janell-Stieda complex Will refer her to orthopedics for further evaluation and management of her knee issues (11) Bilateral hip pain: Code(s): M25.551 - Pain in right hip; M25.552 - Pain in left hip Plan: Patient is advised that her hip x-rays done last year came back normal (12) Insomnia: Code(s): G47.00 - Insomnia, unspecified Qualifiers: Insomnia type: unspecified Qualified Code(s): G47.00 - Insomnia, unspecified Plan: Sleep hygiene reinforced Continue Trazodone 50 mg Q HS PRN (13) Anxiety: Code(s): F41.9 - Anxiety disorder, unspecified Plan: Continue Clonazepam 0.5 mg BID PRN and Hydroxyzine 50 mg PRN (14) Bipolar affective disorder: Code(s): F31.9 - Bipolar disorder, unspecified Qualifiers: Active/Remission status: currently active Current bipolar episode type: mixed Current episode severity: unspecified Qualified Code(s): F31.60 - Bipolar disorder, current episode mixed, unspecified Plan: Continue Sertraline 50 mg QD, Quetiapine 300 mg Q HS and Oxcarbazepine 300 mg BID Follow up with psychiatry as scheduled (15) Smoker: Comment: SHE CLAIMS THAT SHE IS SMOKING 7-10 CIGARETTES A DAY AND TRYING TO CUT DOWN. AGAIN COUNSELED THAT SHE SHOULD TRY TO QUIT COMPLETELY. Code(s): F17.200 - Nicotine dependence, unspecified, uncomplicated Plan: Counseled again on smoking cessation (16) Morbid obesity with BMI of 40.0-44.9, adult: Comment: DISCUSSED WITH THE PATIENT ABOUT HER WEIGHT ISSUE. SHE IS WELL AWARE OF IT. I ADVISED ABOUT DIET AND EXERCISE. SHE NEEDS TO JOIN A WEIGHT MANAGEMENT PROGRAM, AND TELLS ME TODAY THAT SHE IS PLANNING TO JOIN THE PROGRAM, AND WILL BE WILLING TO UNDERGO BARIATRIC SURGERY. Code(s): E66.01 - Morbid (severe) obesity due to excess calories; Z68.41 - Body mass index [BMI] 40.0-44.9, adult Plan: Reinforced diet/exercise as tolerated/lose weight She has been referred to weight management for consideration for lap banding, per patient's request States that she initially went to weight management but stopped going when she was advised that she needs to watch some videos first before they can continue to see her She is now requesting for a referral to bariatric surgery - referral done Plan Follow up in 4 months Orders: Orders AMB Hemoglobin A1c Today R73.01 - Impaired fasting glucose XR sacroiliac joint min 3V Today G89.29 - Other chronic pain, M53.3 - Sacrococcygeal disorders, not elsewhere classified, M54.41 - Lumbago with sciatica, right side Referrals Cardiology Referral R07.9 - Chest pain, unspecified Neurology Referral R20.2 - Paresthesia of skin, R29.898 - Other symptoms and signs involving the musculoskeletal system Bariatric Surgery Referral E66.01 - Morbid (severe) obesity due to excess calories, Z68.41 - Body mass index [BMI] 40.0-44.9, adult Orthopedics Referral M76.40 - Tibial collateral bursitis [Janell-Stieda], unspecified leg Medications: New [INSPIRE] As directed 1 ea 0RF G47.33 - Obstructive sleep apnea (adult) (pediatric) Coding Level of Care Code Est Pt Level 4 (87728) Diagnoses Mixed hyperlipidemia E78.2 Chest pain, unspecified type R07.9 Chest pain type: unspecified JOANN (obstructive sleep apnea) G47.33 Lumbar degenerative disc disease M51.36 Acute right-sided low back pain with right-sided sciatica M54.41 Chronicity: acute Sciatica laterality: sciatica of right side Benign essential hypertension I10 Impaired fasting glucose R73.01 Fibromyalgia M79.7 Paresthesia of hand, bilateral R20.2 Janell-Stieda syndrome, 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 Laterality: unspecified laterality Bilateral hip pain M25.551; M25.552 Insomnia, unspecified type G47.00 Insomnia type: unspecified Anxiety F41.9 Bipolar affective disorder, current episode mixed, current episode severity unspecified F31.60 Active/Remission status: currently active Current bipolar episode type: mixed Current episode severity: unspecified Smoker F17.200 Morbid obesity with BMI of 40.0-44.9, adult E66.01; Z68.41
[2024-02-09 10:45] VITALS: BP 120/74; BMI 41.3
== END 2024-02-09 11:20 | disposition home or self-care (01) ==
PROVIDERS: PCP Internal Medicine; Visit Provider Internal Medicine
DX: R73.01 Impaired fasting glucose (principal)
CPT/HCPCS: 83036; 99214

== ENCOUNTER 2024-02-13 11:29 | Outpatient (REF) | payer OTHER, SELFPAY ==
--- NOTE | ~2024-02-13 | XR_ITS ---
EXAMINATION: XR SACROILIAC JOINTS CLINICAL INFORMATION: Lumbago with sciatica, right side COMPARISON: None available. TECHNIQUE: 3 views of the sacroiliac joints FINDINGS: The bones are normal. No fracture. Alignment is anatomic. Sacroiliac joint spaces are well-maintained without erosions or surrounding sclerosis. XR/XR sacroiliac joint min 3V IMPRESSION: Normal sacroiliac joints.
== END 2024-02-13 11:30 | disposition home or self-care (01) ==
LOC: HO.XRAY 11:29
PROVIDERS: PCP Internal Medicine; Visit Provider Internal Medicine
DX: M54.41 Lumbago with sciatica, right side (principal); M53.3 Sacrococcygeal disorders, not elsewhere classified; G89.29 Other chronic pain
CPT/HCPCS: 72202

== ENCOUNTER → 2024-02-20 09:41 | Outpatient (BNVA) | payer OTHER, SELFPAY | PROVIDERS: PCP Internal Medicine; Visit Provider Physician Assistant Surgical ==

== ENCOUNTER 2024-03-07 08:39 | Emergency (ER) | payer OTHER, SELFPAY ==
[2024-03-07 08:53] VITALS: PULSE 98; RESP 18; TEMP 36.7; O2SAT 96; BMI 41.5
[2024-03-07 09:24] LABS: IDNOW Serial# 08D9AD1C; Strep A Nucleic Acid Positive (Negative)
[2024-03-07 09:47] LABS: Influenza A PCR NEGATIVE (Negative); Influenza B PCR NEGATIVE (Negative); Resp Syncy Virus RNA Qual PCR NEGATIVE (Negative); SARS COV2 PCR INHOUSE NEGATIVE (Negative)
--- NOTE | 2024-03-07 09:54 | ED.URI ---
HPI - URI/Sore Throat General Chief Complaint: Upper Respiratory Symptoms Stated Complaint: sore throat ear pain headache Time Seen by Provider: 03/07/24 09:22 Source: patient and RN notes reviewed Mode of arrival: ambulatory Limitations: no limitations History of Present Illness ED Provider: Rylie Lozano PA-C HPI Narrative: This is a 48-year-old female, with a history of hyperlipidemia, DDD, who presents emergency department with complaints of sore throat, bilateral ear pain, cough, congestion, and headache since yesterday. Patient states that she had difficulty falling asleep due to the pain she had in her throat. She has not been taking any medications at to treat her current symptoms. Her daughter's sick at home with strep. She is able to drink fluids, however states that this worsens her pain. She denies any fevers, endorses chills and nausea. Denies any vomiting or diarrhea. No other complaints or concerns at this time. MD elicited complaint: cough, sore throat and nasal congestion Consistency: constant Severity: moderate Able to tolerate fluids by mouth: Yes Exacerbating factors: swallowing Relieving factors: nothing Context: sick contacts Associated symptoms: chills, headache, nasal congestion, sore throat and nausea Treatments prior to arrival: none Related Data Home Medications ?Medication ?Instructions ?Recorded ?Confirmed quetiapine 300 mg tablet,extended 300 mg PO BEDTIME 07/05/22 02/09/24 release 24 hr hydroxyzine HCl 50 mg tablet 50 mg PO DAILY 10/27/22 02/09/24 oxcarbazepine 300 mg tablet 300 mg PO BID 10/27/22 02/09/24 aripiprazole 20 mg tablet 20 mg PO BEDTIME PRN 02/09/24 02/09/24 Previous Rx's ?Medication ?Instructions ?Recorded clonazepam 0.5 mg tablet (Klonopin) 0.5 mg PO BID PRN anxiety 30 days 09/22/21 #60 tabs diclofenac sodium 1 % topical gel 2 g topical QID #100 grams 11/05/22 (Arthritis Pain (diclofenac)) ibuprofen 800 mg tablet 800 mg PO TID PRN for pain 30 days 12/09/22 #90 tabs metoprolol tartrate 50 mg tablet 50 mg PO BID #180 tabs 03/27/23 gabapentin 100 mg capsule 100 mg PO BEDTIME 30 days #30 caps 01/08/24 INSPIRE #1 ea 02/09/24 amoxicillin 500 mg tablet 500 mg PO BID #10 tabs 03/07/24 benzocaine 15 mg-menthol 2.6 mg 1 daisy mucous membrane Q2-4H PRN 03/07/24 lozenges (Cepacol Sore Throat sore throat #16 ea (benzocaine-menthol)) ibuprofen 600 mg tablet 600 mg PO Q6H PRN pain #30 tabs 03/07/24 Allergies Allergy/AdvReac Type Severity Reaction Status Date / Time acetaminophen [From Vicodin] Allergy Unknown nausea Verified 03/07/24 08:55 hydrocodone [From Vicodin] Allergy Unknown nausea Verified 03/07/24 08:55 Anesthesia S/I-40 Allergy Unknown vomiting Uncoded 03/07/24 08:55 Review of Systems Review of Systems: Yes all other systems are reviewed and are negative Constitutional: Constitutional: Reports as per [facility] Past Medical History Medical History Mixed hyperlipidemia Lumbar degenerative disc disease Morbid obesity with BMI of 40.0-44.9, adult Smoker Blurring of vision Urinary frequency Fatigue Pain and swelling of left lower extremity Left knee pain Surgical History History of cholecystectomy History of tonsillectomy Family History Family History Father Medical history unknown Mother Lung cancer Sister Bipolar 1 disorder Family/Other Breast cancer Hypertension Asthma Social History Social History Housing: Apartment Alcohol intake: never Patient Tobacco Use Status: Current everyday Tobacco user Tobacco use type: Cigarette Cigarette Packs Per Day: 0.5 Cigarettes Per Day: 9 e-Cigarette/Vaping Use: Never Used Second Hand Smoke Exposure: Yes Advance Directives: No service: No Current occupational status: disabled Cognitive needs: No Hearing needs: No Vision needs: No Physical Exam Vital Signs: Vital Signs: Last Vital Signs Temp 98.1 F 03/07/24 08:53 Pulse 98 03/07/24 08:53 Resp 18 03/07/24 08:53 Pulse Ox 96 03/07/24 08:53 O2 Del Method Room Air 03/07/24 08:53 BMI result Body Mass Index 41.5 Const: General: cooperative, comfortable and no acute distress Orientation/consciousness: patient oriented x3 Limitations: no limitations HEENT: Other: Oropharynx is erythematous, no tonsillar hypertrophy or exudates. Uvula is midline. Speaking full sentences, no trismus, drooling, or dysphonia. Head: Yes normal to inspection, Yes normocephalic and Yes atraumatic Ears: hearing grossly normal bilaterally and TM's normal bilaterally General nose exam: Normal external nose present Face and sinus: Yes normal facial exam Throat: Yes posterior oropharynx normal Eyes: General: appearance normal, both eyes and all related structures Eyelids: Yes eyelids normal Conjunctivae: conjunctivae normal Sclerae: sclerae normal Pupils: Equal, round and reactive pupils present EOM: EOMs intact bilaterally Neck: Neck: Yes normal visual inspection, Yes full ROM and Yes no lymphadenopathy Lymphatic: no lymphadenopathy noted Chest: Chest palpation & inspection: normal inspection of the chest Resp: Effort & Inspection: normal respiratory effort and able to speak in complete sentences Auscultation: clear to auscultation bilaterally, no crackles, no rales, no rhonchi and no wheezes Cardio: Rate: regular rate Rhythm: regular rhythm Heart sounds: S1 normal heart sound present and S2 normal heart sound present GI: Inspection: Yes normal to inspection Skin: General skin exam: no rashes or lesions noted Trauma: no lacerations or abrasions Wounds: no wounds Neuro: General: patient oriented x3 and moves all extremities Cranial nerves: Yes Equal, round and reactive pupils present Extrem: General: Yes normal to inspection Right upper extremity: normal to inspection Left upper extremity: normal to inspection Right lower extremity: normal to inspection Left lower extremity: normal to inspection Medical Decision Making Medical Decision Making MDM Narrative: This is a 48-year-old female, with a history of hyperlipidemia, DDD, who presents emergency department with complaints of sore throat, headaches, bilateral ear pain since yesterday. On arrival, vital signs within normal limits. Oropharynx is mildly erythematous, no tonsillar hypertrophy or exudates. Speaking full sentences without any trismus, drooling, dysphonia. Differential diagnoses include strep pharyngitis, tonsillitis, URI, RSV, COVID, flu. Less likely [employer] given midline uvula, and physical exam not consistent with this. Patient tested positive for strep. Will treat with course of amoxicillin, also given script for ibuprofen as well as cephacol lozenges. Discussed workup with patient. She understands agrees with plan. Given return precautions. Stable for discharge Differential Diagnosis Differential Diagnoses: The differential diagnosis associated with the presentation includes See above Admission/Observation Consideration of admission/observation: Escalation of care including admission/observation considered Escalation of care including admission/observation considered however given workup today not warranted at this time. Lab Data MDM Lab Attestation statement: I reviewed the patient's lab results. Flu, RSV, COVID, and strep Labs: Lab Results 03/07/24 Range/Units 09:05 Influenza Type A (PCR) NEGATIVE (Negative) Influenza Type B (PCR) NEGATIVE (Negative) RSV RNA Qual (PCR) NEGATIVE (Negative) SARS-CoV-2 RNA (RT-PCR) NEGATIVE (Negative) S. pyogenes GrpA AIDE Positive A (Negative) Discharge Plan Discharge Clinical Impression: Strep throat Patient Disposition: Home, Self-Care Instructions: Strep Throat (ED) Additional Instructions: You were seen in the ER for a sore throat. Your strep test came back positive. Strep throat is a bacterial infection that needs antibiotics for treatment. Please take prescribed antibiotic as directed. Finish the entire course even if you are feeling better. Alternate between ibuprofen and Tylenol as needed for pain Saltwater gargles, tea with honey, and popsicles can help with your pain in your throat. Make sure you throw away your toothbrush 72 hours after starting antibiotics. If any new or worsening symptoms occur including but not limited to difficulty swallowing, difficulty opening and closing your jaw, please return for re-evaluation. Prescriptions: New amoxicillin 500 mg tablet 500 mg PO BID Qty: 10 0RF ibuprofen 600 mg tablet 600 mg PO Q6H PRN (Reason: pain) Qty: 30 0RF Cepacol Sore Throat (meryl-men) 15-2.6 mg lozenge 1 daisy mucous membrane Q2-4H PRN (Reason: sore throat) Qty: 16 0RF No Action diclofenac sodium [Arthritis Pain (diclofenac)] 1 % gel 2 g topical QID Qty: 100 0RF Rx Instructions: apply to single elbow, wrist or hand; for hand includes palm/fingers/back of hand ibuprofen 800 mg tablet 800 mg PO TID PRN (Reason: for pain) 30 Days Qty: 90 3RF metoprolol tartrate 50 mg tablet 50 mg PO BID Qty: 180 3RF gabapentin 100 mg capsule 100 mg PO BEDTIME 30 Days Qty: 30 1RF clonazepam [Klonopin] 0.5 mg tablet 0.5 mg PO BID PRN (Reason: anxiety) 30 Days Qty: 60 0RF aripiprazole 20 mg tablet 20 mg PO BEDTIME PRN (DME) INSPIRE See Rx Instructions .Route .MEDSUPPLY Qty: 1 0RF Rx Instructions: As directed quetiapine 300 mg tablet extended release 24 hr 300 mg PO BEDTIME oxcarbazepine 300 mg tablet 300 mg PO BID hydroxyzine HCl 50 mg tablet 50 mg PO DAILY Print Language: Divehi
[2024-03-07 10:17] VITALS: BP 127/69; PULSE 86; RESP 19; TEMP 36.7; O2SAT 98
== END 2024-03-07 10:18 | disposition home or self-care (01) ==
PROVIDERS: Emergency Provider Emergency Medicine; PCP Internal Medicine
DX: J02.0 Streptococcal pharyngitis (principal); H92.03 Otalgia, bilateral; R05.9 Cough, unspecified; R51.9 Headache, unspecified; E78.2 Mixed hyperlipidemia; F17.210 Nicotine dependence, cigarettes, uncomplicated; Z03.818 Encounter for observation for suspected exposure to other biological agents ruled out; Z79.899 Other long term (current) drug therapy
CPT/HCPCS: 0241U; 87651; 99283

== ENCOUNTER 2024-03-19 08:44 | Emergency (ER) | payer OTHER, SELFPAY ==
[2024-03-19 09:03] VITALS: BP 137/64; PULSE 99; RESP 18; TEMP 36.7; O2SAT 100; BMI 41.6
[2024-03-19 09:26] LABS: IDNOW Serial# 08D9AD1C; Strep A Nucleic Acid Positive (Negative)
[2024-03-19 09:37] LABS: IDNOW Serial# 152EDE1D
[2024-03-19 09:38] LABS: COVID-19 Test Negative (Negative); IDNOW Serial# 9DB6401D; Influenza A Negative (Negative); Influenza B2 Negative (Negative)
--- NOTE | 2024-03-19 11:28 | ED_ITS ---
HPI - General Adult General Chief complaint: Upper Respiratory Symptoms Stated complaint: congested, strep ? 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 Patient had strep throat 2 weeks ago and was treated and got better. Patient states last night she started have sore throat again. Patient denies any drooling, sensation of throat closing, chest pain, change in voice, or shortness of breath Related Data Home Medications ?Medication ?Instructions ?Recorded ?Confirmed quetiapine 300 mg tablet,extended 300 mg PO BEDTIME 07/05/22 02/09/24 release 24 hr hydroxyzine HCl 50 mg tablet 50 mg PO DAILY 10/27/22 02/09/24 oxcarbazepine 300 mg tablet 300 mg PO BID 10/27/22 02/09/24 aripiprazole 20 mg tablet 20 mg PO BEDTIME PRN 02/09/24 02/09/24 Previous Rx's ?Medication ?Instructions ?Recorded clonazepam 0.5 mg tablet (Klonopin) 0.5 mg PO BID PRN anxiety 30 days 09/22/21 #60 tabs diclofenac sodium 1 % topical gel 2 g topical QID #100 grams 11/05/22 (Arthritis Pain (diclofenac)) ibuprofen 800 mg tablet 800 mg PO TID PRN for pain 30 days 12/09/22 #90 tabs metoprolol tartrate 50 mg tablet 50 mg PO BID #180 tabs 03/27/23 INSPIRE #1 ea 02/09/24 amoxicillin 500 mg tablet 500 mg PO BID #10 tabs 03/07/24 benzocaine 15 mg-menthol 2.6 mg 1 daisy mucous membrane Q2-4H PRN 03/07/24 lozenges (Cepacol Sore Throat sore throat #16 ea (benzocaine-menthol)) ibuprofen 600 mg tablet 600 mg PO Q6H PRN pain #30 tabs 03/07/24 gabapentin 100 mg capsule 100 mg PO BEDTIME 30 days #30 caps 03/11/24 amoxicillin 875 mg-potassium 1 tab PO Q12H 10 days #20 tabs 03/19/24 clavulanate 125 mg tablet naproxen 500 mg tablet 500 mg PO BID PRN pain 7 days #14 03/19/24 tabs Allergies Allergy/AdvReac Type Severity Reaction Status Date / Time hydrocodone [From Vicodin] Allergy Unknown nausea Verified 03/19/24 09:05 Anesthesia S/I-40 Allergy Unknown vomiting Uncoded 03/07/24 08:55 Review of Systems Review of Systems: sore throat, cough Yes all other systems are reviewed and are negative [facility] Past Medical History Medical History Mixed hyperlipidemia Lumbar degenerative disc disease Morbid obesity with BMI of 40.0-44.9, adult Smoker Blurring of vision Urinary frequency Fatigue Pain and swelling of left lower extremity Left knee pain Surgical History History of cholecystectomy History of tonsillectomy Family History Family History Father Medical history unknown Mother Lung cancer Sister Bipolar 1 disorder Family/Other Breast cancer Hypertension Asthma Social History Social History Housing: Apartment Alcohol intake: never Patient Tobacco Use Status: Current everyday Tobacco user Tobacco use type: Cigarette Cigarette Packs Per Day: 0.5 Cigarettes Per Day: 9 e-Cigarette/Vaping Use: Never Used Second Hand Smoke Exposure: Yes Advance Directives: No Advance Directives Information Provided: No service: No Current occupational status: disabled Cognitive needs: No Hearing needs: No Vision needs: No Physical Exam ED Vital Signs: Vital Signs - 24 hr 03/19/24 09:03 03/19/24 12:12 Temperature 98.1 F 98.1 F Pulse Rate 99 99 Respiratory Rate 18 18 Blood Pressure 137/64 137/64 Pulse Oximetry 100 100 Oxygen Delivery Method Room Air Room Air BMI result Body Mass Index 41.6 Const General: cooperative, healthy appearing, comfortable, no acute distress, well developed, alert, awake and Physically active Orientation/consciousness: oriented to person, oriented to place, oriented to time and patient oriented x3 HENMT Other: negative for signs of peritonsillar abscess Head: Yes normal to inspection, Yes No palpable skull fracture present, Yes normocephalic, Yes atraumatic and No abrasion Throat: Yes posterior oropharynx normal, Yes tonsils normal (tonsillectomy) and Yes uvula midline Eyes General: appearance normal, both eyes and all related structures Neck Neck: Yes normal visual inspection, Yes full ROM, Yes no lymphadenopathy, Yes no meningeal signs, Yes trachea midline, Yes supple, No anterior neck swelling and No tender Chest Chest palpation & inspection: normal inspection of the chest and normal palpation of entire chest wall Resp Effort & Inspection: normal respiratory effort and able to speak in complete sentences Cardio Jugular venous distension: no JVD Heart sounds: S1 normal heart sound present and S2 normal heart sound present GI Inspection: Yes normal to inspection Palpation (GI): Soft to palpation, not firm, nontender, no guarding and not rigid General: No CVA tenderness and Yes no CVA tenderness Back/Spine/Pelvis Back: no CVA tenderness, No CVA tenderness and No back tenderness Skin General skin exam: no rashes or lesions noted, elasticity normal and turgor normal Neuro General: oriented to person, oriented to place, oriented to time, patient oriented x3, gait normal, tone normal, moves all extremities, Normal light touch and pain sensation, no meningeal signs, no focal motor deficits, CN's II-XI intact bilaterally and normal sensation to monofilament Extrem General: Yes normal to inspection, Yes full ROM and Yes capillary refill normal Psych Appearance: grossly normal, well kempt and not disheveled Medical Decision Making Medical Decision Making MDM Narrative: 48-year-old female with history of recurrent strep presents to ED for sore throat and cough. Patient states history of tonsillectomy. Negative for signs of peritonsillar abscess, Talib angina, epiglottitis, or retropharyngeal abscess. Patient is safe for discharge. Patient discharged with Augmentin. Patient explained worrisome signs and informed to return to the ED immediately. Patient given a referral to ENT Differential Diagnosis Differential Diagnoses: The differential diagnosis associated with the presentation includes ( strep, COVID, influenza) Admission/Observation Consideration of admission/observation: Escalation of care including admission/observation considered Lab Data [facility] Lab Attestation statement: I reviewed the patient's lab results. Labs: Lab Results 03/19/24 Range/Units 09:18 COVID-19 (ADAM) Negative (Negative) COVID-19 Clin Com See Note Influenza Type A (AIDE) Negative (Negative) Influenza Type B (AIDE) Negative (Negative) Influenza A & B Note See Note S. pyogenes GrpA AIDE Positive A (Negative) Independent Historian Clinical information obtained from an independent historian. History obtained from or confirmed by: Other ( patient) External Record Review External record reviewed: Other ( prior visits) Prescription Management I considered prescription management with: Antibiotic Discharge Plan Discharge Clinical Impression: Strep throat Patient Disposition: Home, Self-Care Instructions: Strep Throat (ED) Additional Instructions: recommend follow-up with primary care provider and ENT. Return to the ED immediately for any drooling, change in voice, inability to tolerate solid food/ liquid, neck swelling, chest pain, shortness of breath, or any other concerning symptoms. Prescriptions: New amoxicillin-pot clavulanate 875-125 mg tablet 1 tab PO Q12H 10 Days Qty: 20 0RF naproxen 500 mg tablet 500 mg PO BID PRN (Reason: pain) 7 Days Qty: 14 0RF No Action diclofenac sodium [Arthritis Pain (diclofenac)] 1 % gel 2 g topical QID Qty: 100 0RF Rx Instructions: apply to single elbow, wrist or hand; for hand includes palm/fingers/back of hand ibuprofen 800 mg tablet 800 mg PO TID PRN (Reason: for pain) 30 Days Qty: 90 3RF metoprolol tartrate 50 mg tablet 50 mg PO BID Qty: 180 3RF gabapentin 100 mg capsule 100 mg PO BEDTIME 30 Days Qty: 30 1RF amoxicillin 500 mg tablet 500 mg PO BID Qty: 10 0RF ibuprofen 600 mg tablet 600 mg PO Q6H PRN (Reason: pain) Qty: 30 0RF Cepacol Sore Throat (meryl-men) 15-2.6 mg lozenge 1 daisy mucous membrane Q2-4H PRN (Reason: sore throat) Qty: 16 0RF clonazepam [Klonopin] 0.5 mg tablet 0.5 mg PO BID PRN (Reason: anxiety) 30 Days Qty: 60 0RF aripiprazole 20 mg tablet 20 mg PO BEDTIME PRN (DME) INSPIRE See Rx Instructions .Route .MEDSUPPLY Qty: 1 0RF Rx Instructions: As directed quetiapine 300 mg tablet extended release 24 hr 300 mg PO BEDTIME oxcarbazepine 300 mg tablet 300 mg PO BID hydroxyzine HCl 50 mg tablet 50 mg PO DAILY Referrals: Felton Flowers [Physician] - ( Recurrent strep) Stand Alone Forms: Work/School Release Interventions: ED Discharge Assessment Last Done: 03/19/24 12:12 Discharge Date/Time: 03/19/24 12:13 Print Language: Croatian
[2024-03-19 12:12] VITALS: BP 137/64; PULSE 99; RESP 18; TEMP 36.7; O2SAT 100
== END 2024-03-19 12:13 | disposition home or self-care (01) ==
PROVIDERS: Emergency Provider Emergency Medicine; PCP Internal Medicine
DX: J02.0 Streptococcal pharyngitis (principal); G47.33 Obstructive sleep apnea (adult) (pediatric); R05.9 Cough, unspecified; Z11.52 Encounter for screening for COVID-19
CPT/HCPCS: 87502; 87635; 87651; 99282; 99283

== ENCOUNTER 2024-06-17 09:05 | Outpatient (AMB) | payer OTHER, SELFPAY ==
--- NOTE | 2024-06-17 09:22 | MHC.OFFVIS ---
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 Accompanied by: Self / Same As Patient Allergies hydrocodone [From Vicodin] Allergy (Unknown, Verified 03/19/24 09:05) nausea Anesthesia S/I-40 Allergy (Unknown, Uncoded 03/07/24 08:55) vomiting Medication List - Last Reconciled 06/17/24 by Torrey Early MD aripiprazole 20 mg PO BEDTIME PRN benzocaine-menthol 15-2.6 mg (Cepacol Sore Throat (benzocaine-menthol)) 1 daisy mucous membrane Q2-4H PRN clonazepam (Klonopin) 0.5 mg PO BID PRN 30 days diclofenac sodium 1% (Arthritis Pain (diclofenac)) 2 grams topical QID gabapentin 100 mg PO BEDTIME 30 days hydroxyzine HCl 50 mg PO DAILY ibuprofen 800 mg PO TID PRN 30 days [INSPIRE As directed] metoprolol tartrate 50 mg PO BID naproxen 500 mg PO BID PRN 7 days oxcarbazepine 300 mg PO BID quetiapine ER 300 mg PO BEDTIME sertraline (Zoloft) 50 mg PO DAILY HPI Comments Details: Madison is here for consultation regarding various symptoms. Long-term smoker. She states she is trying to quit. Morbid obesity. She gets chest pains somewhat randomly. These happen mainly at rest. No clear exertional component. She gets some shortness of breath that she relates to smoking. She also gets sensations of chest fluttering at different times. Brief episodes and nothing generally prolonged. Otherwise, no known coronary disease myocardial infarction or cardiomyopathy. She states she has obstructive sleep apnea but does not use CPAP mask. [facility] Medical History Mixed hyperlipidemia Lumbar degenerative disc disease Morbid obesity with BMI of 40.0-44.9, adult Smoker Blurring of vision Urinary frequency Fatigue Pain and swelling of left lower extremity Left knee pain Surgical History History of cholecystectomy History of tonsillectomy Family History (Updated 06/17/24 @ 09:31 by Riddhi Tanner CMA) Father Medical history unknown Mother Lung cancer COPD (chronic obstructive pulmonary disease) Epilepsy Sister Bipolar 1 disorder Family/Other Breast cancer Hypertension Asthma Maternal Grandmother Stroke Social History Housing: Apartment Alcohol intake: never Patient Tobacco Use Status: Current everyday Tobacco user Tobacco use type: Cigarette Cigarette Packs Per Day: 0.5 Cigarettes Per Day: 9 e-Cigarette/Vaping Use: Never Used Second Hand Smoke Exposure: Yes service: No Current occupational status: disabled Cognitive needs: No Hearing needs: No Vision needs: No Review of Systems Const Denies chills, Denies daytime sleepiness, Denies fatigue, Denies fever(s), Denies poor appetite, Denies snoring, Denies stops breathing during sleep, Denies weakness, Denies weight gain and Denies weight loss Eyes Denies loss of vision ENT Denies dizziness and Denies hearing loss Card Denies chest pain, Denies irregular heart rhythm, Denies claudication, Denies leg edema, Denies lightheadedness, Denies palpitations, Denies dyspnea on exertion and Denies orthopnea Resp Denies cough, Denies excessive phlegm production, Denies dyspnea on exertion, Denies snoring and Denies wheezing GI Denies abdominal pain, Denies hematochezia, Denies change in bowel habits, Denies nausea and Denies vomiting Denies urinary frequency and Denies dysuria Musc Denies arthralgias, Denies muscle weakness, Denies numbness and Denies other Skin/Breast Denies nail changes and Denies rash Neuro Denies Abnormal speech present, Denies dizziness, Denies loss of vision, Denies memory loss, Denies numbness and Denies weakness Psych Denies depression and Denies memory loss Endo Denies fatigue and Denies palpitations Alli/Lymph Denies easy bruising Aller/Immun Denies wheezing Physical Exam Vital Signs: Last Vital Signs Pulse 77 06/17/24 09:24 BP 118/76 06/17/24 09:24 BMI result Body Mass Index 41.4 Const General: comfortable and no acute distress Orientation/consciousness: patient oriented x3 HEENT Other: Unremarkable Head: Yes normal to inspection Neck Neck: Yes normal visual inspection Chest Chest palpation & inspection: normal inspection of the chest Resp Auscultation: clear to auscultation bilaterally Cardio Palpation: normal PMI Heart sounds: S1 normal heart sound present, S2 normal heart sound present, no gallops, no murmurs and no rubs GI Palpation (GI): Soft to palpation Back/Spine/Pelvis Other: unremarkable Skin General skin exam: no rashes or lesions noted Neuro General: patient oriented x3 Speech: No Abnormal speech present Extrem General: Yes normal to inspection Psych Mental Status: mental status grossly normal Office Procedures EKG Details: EKG with underlying sinus rhythm at 77/Min; no significant ST-T changes and otherwise unremarkable. [place] [id number], Complete Assessment & Plan Assessment & Plan (1) Chest pain: Code(s): R07.9 - Chest pain, unspecified Category: Medical Qualifiers: Chest pain type: unspecified Qualified Code(s): R07.9 - Chest pain, unspecified (2) Heart palpitations: Code(s): R00.2 - Palpitations Category: Medical (3) Smoker: Comment: SHE CLAIMS THAT SHE IS SMOKING 7-10 CIGARETTES A DAY AND TRYING TO CUT DOWN. AGAIN COUNSELED THAT SHE SHOULD TRY TO QUIT COMPLETELY. Code(s): F17.200 - Nicotine dependence, unspecified, uncomplicated Category: Social Hx (4) Morbid obesity with BMI of 40.0-44.9, adult: Code(s): E66.01 - Morbid (severe) obesity due to excess calories; Z68.41 - Body mass index [BMI] 40.0-44.9, adult Category: Medical (5) JOANN (obstructive sleep apnea): Code(s): G47.33 - Obstructive sleep apnea (adult) (pediatric) Category: Medical Plan Multiple risk factors including obesity, smoking, untreated sleep apnea. Obtain a comprehensive workup including echocardiogram, stress test and Holter monitor. She is at increased risk for coronary disease, cardiomyopathy as well as various cardiac arrhythmias. We discussed about these. Weight loss, smoking cessation, compliance with CPAP will help mitigate these risks. Follow-up after testing. Orders: Orders CA echo transthoracic complete Today R07.9 - Chest pain, unspecified CA echo stress exercise Today R07.2 - Precordial pain ECG 7 day holter monitor Today R00.2 - Palpitations Coding Level of Care Code New Pt Level 4 (39795) Diagnoses Chest pain, unspecified type R07.9 Chest pain type: unspecified Heart palpitations R00.2 Smoker F17.200 Morbid obesity with BMI of 40.0-44.9, adult E66.01; Z68.41 JOANN (obstructive sleep apnea) G47.33 CPT Codes EKG - CPT: 67609-[id number], Complete ([id number])
[2024-06-17 09:24] VITALS: BP 118/76; PULSE 77; BMI 41.4
== END 2024-06-17 09:55 | disposition home or self-care (01) ==
PROVIDERS: PCP Internal Medicine; Visit Provider Internal Medicine
DX: R07.9 Chest pain, unspecified (principal); R00.2 Palpitations; F17.200 Nicotine dependence, unspecified, uncomplicated; E66.01 Morbid (severe) obesity due to excess calories; Z68.41 Body mass index [BMI] 40.0-44.9, adult; G47.33 Obstructive sleep apnea (adult) (pediatric)
CPT/HCPCS: 93010; 99204

== ENCOUNTER → 2024-06-17 09:05 | Outpatient (BNVA) | payer OTHER, SELFPAY | PROVIDERS: PCP Internal Medicine; Visit Provider Internal Medicine | DX: R07.9 Chest pain, unspecified (principal); G47.33 Obstructive sleep apnea (adult) (pediatric); R00.2 Palpitations; E66.01 Morbid (severe) obesity due to excess calories; F17.210 Nicotine dependence, cigarettes, uncomplicated; Z68.41 Body mass index [BMI] 40.0-44.9, adult; Z71.6 Tobacco abuse counseling | CPT/HCPCS: 93005; 99202 ==

== ENCOUNTER → 2024-08-01 08:50 | Outpatient (REF) | payer OTHER, SELFPAY ==
--- NOTE | 2024-08-01 08:55 | HM_ITS ---
Conclusion: 1. Patient was monitored for total period of 4 days and 16 hours 2. Baseline was normal sinus rhythm with average heart of 85 beats per minute 3. No significant arrhythmias or pauses noted 4. No patient reported events MTDD
--- NOTE | 2024-08-01 08:55 | CA_ITS ---
Acquisition Time: 2024-08-01 10:45:19 Total Exercise Time: 00:02:14 Test Indications: Chest Pain Medications: SEE H Protocol: LOULOU Max HR: 166 BPM 95% of Pred: 173 BPM Max BP: 160/080 mmHG Max Work Load: 4.6 METS Exercise stress test with exercise 2 min 14 sec of Loulou protocol, achieving 95% MPHR, with moderate to severe sob, no chest discomfort, without arrythmia, with normotensive response to exercise, without EKG changes meeting criteria for ischemia at acheived workload. Echo images obtained by tech at rest and immediately post peak exercise, Definity contrast used. In recovery her breathing normalized. Test reviewed with Dr Chacon. Referred By: Torrey Early Overread By: NIKI RODRIGUEZ
== END ==
LOC: HO.CARD 08:50
PROVIDERS: PCP Internal Medicine; Visit Provider Internal Medicine
DX: R07.9 Chest pain, unspecified (principal); R00.2 Palpitations
CPT/HCPCS: 93242; 93306; 93350; Q9957

== ENCOUNTER → 2024-08-01 08:55 | Outpatient (BNV) | payer OTHER, SELFPAY | PROVIDERS: PCP Internal Medicine; Visit Provider Nurse Practitioner Family | DX: R00.0 Tachycardia, unspecified (principal) | CPT/HCPCS: 93016; 93018; 93244; 93350; 93352 ==

== ENCOUNTER 2024-08-22 08:54 | Outpatient (AMB) | payer OTHER, SELFPAY ==
[2024-08-22 09:02] VITALS: BP 130/82; PULSE 81; O2SAT 96; BMI 41.1
--- NOTE | 2024-08-22 09:02 | A.OFFPC_ITS ---
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 Accompanied by: Self / Same As Patient Allergies hydrocodone [From Vicodin] Allergy (Unknown, Verified 08/22/24 09:39) nausea Anesthesia S/I-40 Allergy (Unknown, Uncoded 08/22/24 09:39) vomiting Medication List - Last Reconciled 08/22/24 by Timothy Garcia MD aripiprazole 20 mg PO BEDTIME PRN benzocaine-menthol 15-2.6 mg (Cepacol Sore Throat (benzocaine-menthol)) 1 daisy mucous membrane Q2-4H PRN clonazepam (Klonopin) 0.5 mg PO BID PRN 30 days diclofenac sodium 1% (Arthritis Pain (diclofenac)) 2 grams topical QID gabapentin 100 mg PO BEDTIME 30 days hydroxyzine HCl 50 mg PO DAILY ibuprofen 800 mg PO TID PRN 30 days [INSPIRE As directed] metoprolol tartrate 50 mg PO BID naproxen 500 mg PO BID PRN 7 days oxcarbazepine 300 mg PO BID quetiapine ER 300 mg PO BEDTIME sertraline (Zoloft) 50 mg PO DAILY Tobacco use date assessed: 08/22/24 Dental Screening Dental Screen Date: 08/22/24 Did you have a dental visit in the last 12 months?: No Did you have a dental problem in the last 6 months where you did not have access to dental care?: No Was dental information given to patient?: No HPI follow up HPI Details Patient comes in today for her follow-up visit States that she continues to experience increased pain all over, including myalgia and over multiple joints She is also still experiencing recurrent sharp chest pains and occasional chest pressure/discomfort She was seen by Cardiology for evaluation a couple of months ago and was sent for cardiac workups due to her recurrent chest pains and comorbidities that in crease her risks for cardiomyopathy She recently had a stress test done but the test was incomplete due to physical deconditioning as patient got very short of breath well into the procedure She is currently scheduled for a coronary CT instead at [facility] next week on 08/31/2024 States that she would like to know if she can be started now on Wegovy to help her lose weight as she strongly believes that a lot of her problems would improve if she is able to lose a significant amount of weight She currently denies any headaches or dizziness Denies any increased shortness of breath; still has recurrent sharp chest wall pains but these do not appear to be associated with activity or exertion No nausea/vomiting, no abdominal pain No change in bowel habits noted [facility] Medical History (Updated 08/25/24 @ 06:37 by Timothy Garcia MD) Carpal tunnel syndrome, bilateral Mixed hyperlipidemia Lumbar degenerative disc disease Morbid obesity with BMI of 40.0-44.9, adult Smoker Blurring of vision Urinary frequency Fatigue Pain and swelling of left lower extremity Left knee pain Surgical History History of cholecystectomy History of tonsillectomy Family History Father Medical history unknown Mother Lung cancer COPD (chronic obstructive pulmonary disease) Epilepsy Sister Bipolar 1 disorder Family/Other Breast cancer Hypertension Asthma Maternal Grandmother Stroke Social History Housing: Apartment Alcohol intake: never Patient Tobacco Use Status: Current everyday Tobacco user Tobacco use type: Cigarette Cigarette Packs Per Day: 0.5 Cigarettes Per Day: 9 e-Cigarette/Vaping Use: Never Used Second Hand Smoke Exposure: Yes service: No Current occupational status: disabled Cognitive needs: No Hearing needs: No Vision needs: No Questionnaire PHQ-9 Over the last 2 weeks, how often have you been bothered by any of the following problems? 1. Little interest or pleasure in doing things: not at all 2. Feeling down, depressed, or hopeless: several days (currently on medication and in treatment) 3. Trouble falling or staying asleep, or sleeping too much: not at all 4. Feeling tired or having little energy: not at all 5. Poor appetite or overeating: not at all 6. Feeling bad about yourself - or that you are a failure or have let yourself or your family down: not at all 7. Trouble concentrating on things, such as reading the newspaper or watching television: not at all 8. Moving or speaking so slowly that other people could have noticed. Or the opposite - being so fidgety or restless that you have been moving around a lot more than usual: not at all 9. Thoughts that you would be better off or of hurting yourself in some way: not at all Total score: 1 Depression Screening Interpretation: Negative Depression Screening Done: Yes 04297 - PHQ-9 Billing: Yes Source: Developed by Drs. Johnson Baum, Linda Beltran, Ayush Garcia and colleagues, with an educational mirna from [employer]. Thrive Questionnaire Date Thrive assessed: 08/22/24 I am a: Patient What is your living situation today?: I have a steady place to live Within the past 12 months, did the food you bought not last and you didn't have the money to get more?: Never true Within the past 12 months, did you worry whether your food would run out before you got money to buy more?: Never true Do you have trouble paying for medicines?: No Do you have trouble getting transportation to medical appointments?: No Do you have trouble paying your heating and electricity bill?: No Do you have trouble taking care of your child, family member or friend?: No Do you have trouble with day-to-day activities such as bathing, preparing meals, shopping, managing finances, etc.?: No Are you currently unemployed and looking for a job?: No Are you interested in more education?: No Please select the resources that you would like help with: None Currently or been in a relationship where the following occur: No concerns reported THRIVE Score: 0 AUDIT C Alcohol Use Questionnaire (AUDIT-C) 1. How often do you have a drink containing alcohol?: Never 3. How often do you have six or more drinks on one occasion?: Never Total Score: 0 Score Reviewed/Action Taken: Yes AMISH-7 AMB Questionnaire AMISH-7 Date AMISH - 7 assessed: 08/22/24 Feeling nervous, anxious, or on edge: 0 = Not at all Not being able to stop or control worryin = Not at all Worrying too much about different things: 0 = Not at all Trouble relaxin = Not at all Being so restless that it is hard to sit still: 0 = Not at all Becoming easily annoyed or irritable: 0 = Not at all Feeling afraid as if something awful might happen: 0 = Not at all Total AMISH-7 score (0-4 normal; 5-9 mild; 10-14 moderate; 15-21 severe): 0 Source: Developed by Drs. Johnson Baum, Linda Beltran, Ayush Garcia and colleagues, with an educational mirna from [employer]. Review of Systems Const Reports body aches (diffuse), Denies chills, Reports fatigue, Denies fever(s) and Denies headache(s) ENT Denies dysphagia, Denies dizziness, Denies otalgia, Denies headache(s), Reports neck pain, Denies odynophagia and Denies sore throat Card Denies chest pain (but (+) pressure/discomfort at times), Denies rapid heart rate, Denies irregular heart rhythm, Denies palpitations and Reports dyspnea on exertion (mild) Resp Denies cough, Reports dyspnea on exertion (mild) and Denies wheezing GI Reports abdominal pain (on and off, usually in the morning), Denies bloating, Denies change in bowel habits, Denies constipation, Denies dysphagia, Denies heartburn, Denies diarrhea, Reports nausea (recurrent, mostly in AM when she wakes up ), Denies odynophagia and Denies vomiting Denies hematuria, Denies urinary frequency, Denies nocturia, Denies dysuria, Denies urinary incontinence and Denies urinary urgency Musc Reports as per HPI, Reports back pain (increased recurrent pain over the right lower back - see HPI), Reports myalgias (diffuse), Reports arthralgias (involving multiple joints, especially over both hips and both knees), Denies joint swelling, Reports muscle weakness (on and off in both hands ), Reports neck pain, Reports numbness (on and off in both hands) and Reports tingling Skin/Breast Denies rash Neuro Denies dizziness, Denies headache(s), Reports numbness (on and off in both hands), Reports tingling and Denies paresthesias Psych Reports anxiety and Reports depression Endo Reports fatigue and Denies palpitations Alli/Lymph Denies easy bruising Aller/Immun Denies wheezing Physical exam (Primary Care) Vital Signs: Last Vital Signs Pulse 81 08/22/24 09:02 BP 130/82 08/22/24 09:02 Pulse Ox 96 08/22/24 09:02 Oxygen Delivery Method Room Air 08/22/24 09:02 BMI result Body Mass Index 41.1 Tobacco/Smoking Status: Tobacco use Status Tobacco use date assessed 08/22/24 08/22/24 09:07 Patient Tobacco Use Status Current everyday Tobacco 08/22/24 09:07 Tobacco use type Cigarette 08/22/24 09:07 e-Cigarette/Vaping Use Never Used 08/22/24 09:07 PHQ-9: PHQ-9 Score PHQ-9: Total score 1 08/22/24 09:41 Depression Screening Interpretation: Negative Thrive Assessment: Date of Thrive Assessment Date Thrive assessed 08/22/24 08/22/24 09:07 Currently or been in a relationship where the following occur: No concerns reported Const General: no acute distress and alert HENMT Ears: TM's normal bilaterally and EAC's normal Throat: Yes posterior oropharynx normal and Yes tonsils normal (no TP congestion) Neck Neck: Yes no lymphadenopathy and Yes supple Thyroid: Thyroid normal Resp Auscultation: clear to auscultation bilaterally, no rales and no wheezes Cardio Rate: regular rate Rhythm: regular rhythm Heart sounds: no murmurs GI Palpation (GI): Soft to palpation and nontender Auscultation: normal bowel sounds General: Yes no CVA tenderness Back/Spine/Pelvis Back: no CVA tenderness Thoracic/Lumbar Spine: lumbar spinal tenderness (mild) Sacroiliac joints: on the right tender to palpation Skin Rashes: no rashes Extrem General: Yes no clubbing, cyanosis or edema Right upper extremity: shoulder/upper arm Details: tenderness (diffusely over the scapular area) Left upper extremity: shoulder/upper arm Details: tenderness (diffusely over the scapular areas) Right lower extremity: hip/thigh Details: tenderness Location: of the hip and knee Details: tenderness; no swelling Left lower extremity: hip/thigh Details: tenderness Location: of the hip and knee Details: tenderness; no swelling Coding Level of Care Code Est Pt Level 4 (85064) Complex EM visit Add On G2211 Diagnoses Mixed hyperlipidemia E78.2 Chest pain, unspecified type R07.9 Chest pain type: unspecified JOANN (obstructive sleep apnea) G47.33 Benign essential hypertension I10 Degeneration of intervertebral disc of lumbar region with discogenic back pain and lower extremity pain M51.362 Disc-related pain type: discogenic back pain and lower extremity pain Acute right-sided low back pain with right-sided sciatica M54.41 Chronicity: acute Sciatica laterality: sciatica of right side Impaired fasting glucose R73.01 Fibromyalgia M79.7 Carpal tunnel syndrome, bilateral G56.03 Janell-Stieda syndrome, 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 Laterality: unspecified laterality Bilateral hip pain M25.551; M25.552 Insomnia, unspecified type G47.00 Insomnia type: unspecified Anxiety F41.9 Bipolar affective disorder, current episode mixed, current episode severity unspecified F31.60 Active/Remission status: currently active Current bipolar episode type: mixed Current episode severity: unspecified Smoker F17.200 Morbid obesity with BMI of 40.0-44.9, adult E66.01; Z68.41 Additional Codes PHQ-9 - 31224 - PHQ-9 Billing: Yes ([id number]) Assessment & Plan Assessment & Plan (1) Mixed hyperlipidemia: Code(s): E78.2 - Mixed hyperlipidemia Category: Medical Plan: Patient has no recent follow-up labs done; advised that her labs were last done back in November 2022 and she should try to get them done as soon as possible Will send her to the lab [facility] to recheck her labs in fasting lipids Reinforced low-cholesterol diet (2) Chest pain: Code(s): R07.9 - Chest pain, unspecified Category: Medical Qualifiers: Chest pain type: unspecified Qualified Code(s): R07.9 - Chest pain, unspecified Plan: Patient was evaluated by Cardiology a couple of months ago and sent for cardiac workups She recently had cardiac stress testing done but could not complete the exam due to fatigue and physical deconditioning She is now scheduled for a coronary CT next week on 08/31/2024 for further evaluation (3) JOANN (obstructive sleep apnea): Code(s): G47.33 - Obstructive sleep apnea (adult) (pediatric) Category: Medical Plan: She was started on CPAP therapy by Dr. Downey but she had trouble tolerating the mask she was using Per request, we gave her an Rx for the Inspire device and she is instructed to bring this over to the company who provided her with her CPAP device but it appears that this was not covered by her insurance Follow up with Sleep Medicine as scheduled (4) Benign essential hypertension: Code(s): I10 - Essential (primary) hypertension Category: Medical Plan: Reinforced low sodium diet - goal is systolic BP of at least 120 to 130 mm or less Continue Metoprolol 50 mg BID (5) Lumbar degenerative disc disease: Code(s): M51.36 - Other intervertebral disc degeneration, lumbar region Category: Medical Qualifiers: Disc-related pain type: discogenic back pain and lower extremity pain Qualified Code(s): M51.362 - Other intervertebral disc degeneration, lumbar region with discogenic back pain and lower extremity pain Plan: Lumbar spine MRI done back in 08/2019 revealed (+) moderate facet arthropathy and a posterior disc protrusion at L4-L5 that extends into the neural foramina but there is no nerve root impingement and no central canal stenosis. There were also milder spondylitic and facet arthropathic changes at other levels Repeat lumbar spine x-rays done in August 2023 revealed only (+) exaggerated lordosis of the lumbar spine Advised that before her insurance will approve a repeat lumbar spine MRI, she will likely have to trial and fail physical therapy first before that will be approved Reinforced activity and weight-lifting restrictions Continue Tramadol 50 mg 1 to 2 times a day as needed for pain for now - Rx refilled Was seen by pain management months ago but patient reportedly refused any interventional Tx and was advised that without trying those, she cannot be evaluated for eligibility for the opioid Rx program; she has an appointment with pain management again coming up next week She has inquired previously about medical marijuana as an option and she has been advised that this is something she will have to pursue on her own as we are not in any way involved with medical marijuana management; she was also advised that most insurances do not cover medical marijuana and she will most likely have to pay [id number] for them She was recommended by rheumatology recently to consider Gabapentin and she agreed to start this at her last appointment Continue Gabapentin 100 mg Q HS (6) Right-sided low back pain with sciatica: Code(s): M54.41 - Lumbago with sciatica, right side Category: Medical Qualifiers: Chronicity: acute Sciatica laterality: sciatica of right side Qualified Code(s): M54.41 - Lumbago with sciatica, right side Plan: Reinforced activity and weight-lifting restrictions X-rays of the SI joints done a few months ago came back normal/negative (7) Impaired fasting glucose: Code(s): R73.01 - Impaired fasting glucose Category: Medical Plan: Her in-office HgbA1c were normal at 5.5% and 5.7% when previously checked HgbA1c was also normal at 5.4% and at 5.3% in the past Reinforced low calorie/low carb diet (8) Fibromyalgia: Code(s): M79.7 - Fibromyalgia Category: Medical Plan: She has been advised by rheumatology last year that a lot of her symptoms, including her myalgia, are consistent with fibromyalgia She is again encouraged to exercise regularly to help manage her fibromyalgia symptoms Continue Gabapentin 100 mg Q HS (9) Carpal tunnel syndrome, bilateral: Code(s): G56.03 - Carpal tunnel syndrome, bilateral upper limbs Category: Medical Plan: EMG and NCV of both upper extremities done last year in August 2023 revealed (+) 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 She also has early carpal tunnel syndrome on the left. 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 - Tibial collateral bursitis [Janell-Stieda], unspecified leg Category: Medical Qualifiers: Laterality: unspecified laterality Qualified Code(s): M76.40 - Tibial collateral bursitis [Janell-Stieda], unspecified leg Plan: X-rays of both knees done late last year revealed findings of Chronic Janell-Stieda complex Follow up with orthopedics as scheduled (11) Bilateral hip pain: Code(s): M25.551 - Pain in right hip; M25.552 - Pain in left hip Category: Medical Plan: Patient is advised that her hip x-rays done last year came back normal (12) Insomnia: Code(s): G47.00 - Insomnia, unspecified Category: Medical Qualifiers: Insomnia type: unspecified Qualified Code(s): G47.00 - Insomnia, unspecified Plan: Sleep hygiene reinforced Continue Trazodone 50 mg Q HS PRN (13) Anxiety: Code(s): F41.9 - Anxiety disorder, unspecified Category: Medical Plan: Continue Clonazepam 0.5 mg BID PRN and Hydroxyzine 50 mg PRN (14) Bipolar affective disorder: Code(s): F31.9 - Bipolar disorder, unspecified Category: Medical Qualifiers: Active/Remission status: currently active Current bipolar episode type: mixed Current episode severity: unspecified Qualified Code(s): F31.60 - Bipolar disorder, current episode mixed, unspecified Plan: Continue Sertraline 50 mg QD, Quetiapine 300 mg Q HS and Oxcarbazepine 300 mg BID Follow up with psychiatry as scheduled (15) Smoker: Comment: SHE CLAIMS THAT SHE IS SMOKING 7-10 CIGARETTES A DAY AND TRYING TO CUT DOWN. AGAIN COUNSELED THAT SHE SHOULD TRY TO QUIT COMPLETELY. Code(s): F17.200 - Nicotine dependence, unspecified, uncomplicated Category: Social Hx Plan: Patient is counseled again on complete smoking cessation (16) Morbid obesity with BMI of 40.0-44.9, adult: Code(s): E66.01 - Morbid (severe) obesity due to excess calories; Z68.41 - Body mass index [BMI] 40.0-44.9, adult Category: Medical Plan: Reinforced diet/exercise as tolerated/lose weight She was previously referred to weight management and for bariatric surgery consideration but patient now decides she wants to try some medications first like the new GLP ones Have advised her that she should try to get her cardiac evaluation completed first before we proceed Plan Follow up in 3 months Orders: Orders Complete Blood Count Auto Diff 08/22/24 D64.9 - Anemia, unspecified Lipid Panel 08/22/24 E78.00 - Pure hypercholesterolemia, unspecified Comprehensive [place]. Panel Fast 08/22/24 E78.00 - Pure hypercholesterolemia, unspecified UA CC w/rflx Micro + Cult 08/22/24 R30.0 - Dysuria Vitamin D 25-OH Total 08/22/24 E55.9 - Vitamin D deficiency, unspecified Hemoglobin A1c 08/22/24 R73.01 - Impaired fasting glucose TSH reflex Free T4 08/22/24 E78.00 - Pure hypercholesterolemia, unspecified
== END 2024-08-22 09:54 | disposition home or self-care (01) ==
PROVIDERS: PCP Internal Medicine; Visit Provider Internal Medicine
DX: E78.2 Mixed hyperlipidemia (principal); E66.01 Morbid (severe) obesity due to excess calories; F31.60 Bipolar disorder, current episode mixed, unspecified; Z68.41 Body mass index [BMI] 40.0-44.9, adult; R07.9 Chest pain, unspecified; G47.33 Obstructive sleep apnea (adult) (pediatric); I10 Essential (primary) hypertension; M51.362 Other intervertebral disc degeneration, lumbar region with discogenic back pain and lower extremity pain; M54.41 Lumbago with sciatica, right side; R73.01 Impaired fasting glucose; M79.7 Fibromyalgia; G56.03 Carpal tunnel syndrome, bilateral upper limbs

== ENCOUNTER → 2024-08-22 08:54 | Outpatient (BNVA) | payer OTHER, SELFPAY | PROVIDERS: PCP Internal Medicine; Visit Provider Internal Medicine | DX: E78.2 Mixed hyperlipidemia (principal); R07.9 Chest pain, unspecified; G47.33 Obstructive sleep apnea (adult) (pediatric); I10 Essential (primary) hypertension; M51.362 Other intervertebral disc degeneration, lumbar region with discogenic back pain and lower extremity pain; R73.01 Impaired fasting glucose; M79.7 Fibromyalgia; G56.03 Carpal tunnel syndrome, bilateral upper limbs; M76.40 Tibial collateral bursitis [Pellegrini-Stieda], unspecified leg; M25.551 Pain in right hip; M25.552 Pain in left hip; G47.00 Insomnia, unspecified; F41.9 Anxiety disorder, unspecified; F31.60 Bipolar disorder, current episode mixed, unspecified; F17.200 Nicotine dependence, unspecified, uncomplicated; Z71.6 Tobacco abuse counseling | CPT/HCPCS: 96127; 99212 ==

== ENCOUNTER 2024-12-26 10:24 | Outpatient (AMB) | payer OTHER, SELFPAY ==
[2024-12-26 10:30] VITALS: BP 126/88; PULSE 83; TEMP 36.9; O2SAT 97; BMI 41.0
--- NOTE | 2024-12-26 10:30 | A.OFFPC_ITS ---
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 Accompanied by: Daughter and grandson Allergies hydrocodone [From Vicodin] Allergy (Unknown, Verified 12/26/24 11:01) nausea Anesthesia S/I-40 Allergy (Unknown, Uncoded 12/26/24 11:01) vomiting Tobacco use date assessed: 12/26/24 Dental Screening Dental Screen Date: 12/26/24 Did you have a dental visit in the last 12 months?: No Did you have a dental problem in the last 6 months where you did not have access to dental care?: No HPI high calcium HPI Details The patient is a 49-year-old female with past medical history multiple joint pain, JOANN, fibromyalgia, bipolar affective disorder, anxiety disorder, smoker, morbid obesity. She is presenting with concerns of elevated calcium. Reports that she was sent by Cardiology to be evaluated due to her elevated calcium. Patient reports that she has pain all over and her bones always hurting. Patient reports that she would like to be checked for MS. She reports that she is having chest pain on the right side after bending over. She is only having the pain when she breathes in and this pain started on Monday. [facility] Medical History (Updated 12/26/24 @ 11:16 by MARCI Santillan) Carpal tunnel syndrome, bilateral Mixed hyperlipidemia Lumbar degenerative disc disease Morbid obesity with BMI of 40.0-44.9, adult Smoker Blurring of vision Urinary frequency Fatigue Pain and swelling of left lower extremity Left knee pain Surgical History History of cholecystectomy History of tonsillectomy Family History Father Medical history unknown Mother Lung cancer COPD (chronic obstructive pulmonary disease) Epilepsy Sister Bipolar 1 disorder Family/Other Breast cancer Hypertension Asthma Maternal Grandmother Stroke Social History Housing: Apartment Alcohol intake: never Patient Tobacco Use Status: Current everyday Tobacco user Tobacco use type: Cigarette Cigarettes Per Day: 3 e-Cigarette/Vaping Use: Never Used Second Hand Smoke Exposure: Yes service: No Current occupational status: disabled Cognitive needs: No Hearing needs: No Vision needs: No Questionnaire PHQ-9 Over the last 2 weeks, how often have you been bothered by any of the following problems? 1. Little interest or pleasure in doing things: not at all 2. Feeling down, depressed, or hopeless: more than half the days (currently on medication and in treatment) 3. Trouble falling or staying asleep, or sleeping too much: not at all 4. Feeling tired or having little energy: not at all 5. Poor appetite or overeating: not at all 6. Feeling bad about yourself - or that you are a failure or have let yourself or your family down: not at all 7. Trouble concentrating on things, such as reading the newspaper or watching television: not at all 8. Moving or speaking so slowly that other people could have noticed. Or the opposite - being so fidgety or restless that you have been moving around a lot more than usual: not at all 9. Thoughts that you would be better off or of hurting yourself in some way: not at all Total score: 2 Depression Screening Interpretation: Negative Depression Screening Done: Yes 88479 - PHQ-9 Billing: Yes Source: Developed by Drs. Johnson Baum, Linda Beltran, Ayush Garcia and colleagues, with an educational mirna from [employer]. Thrive Questionnaire Date Thrive assessed: 12/26/24 I am a: Patient What is your living situation today?: I have a steady place to live Within the past 12 months, did the food you bought not last and you didn't have the money to get more?: Never true Within the past 12 months, did you worry whether your food would run out before you got money to buy more?: Never true Do you have trouble paying for medicines?: No Do you have trouble getting transportation to medical appointments?: No Do you have trouble paying your heating and electricity bill?: No Do you have trouble taking care of your child, family member or friend?: No Do you have trouble with day-to-day activities such as bathing, preparing meals, shopping, managing finances, etc.?: No Are you currently unemployed and looking for a job?: No Are you interested in more education?: No Please select the resources that you would like help with: None Currently or been in a relationship where the following occur: No concerns reported THRIVE Score: 0 AUDIT C Alcohol Use Questionnaire (AUDIT-C) 1. How often do you have a drink containing alcohol?: Never 3. How often do you have six or more drinks on one occasion?: Never Total Score: 0 Score Reviewed/Action Taken: Yes AMISH-7 AMB Questionnaire AMISH-7 Date AMISH - 7 assessed: 12/26/24 Feeling nervous, anxious, or on edge: 0 = Not at all Not being able to stop or control worryin = Not at all Worrying too much about different things: 0 = Not at all Trouble relaxin = Not at all Being so restless that it is hard to sit still: 0 = Not at all Becoming easily annoyed or irritable: 0 = Not at all Feeling afraid as if something awful might happen: 0 = Not at all Total AMISH-7 score (0-4 normal; 5-9 mild; 10-14 moderate; 15-21 severe): 0 Source: Developed by Drs. Johnson Baum, Linda Beltran, Ayush Garcia and colleagues, with an educational mirna from [employer]. AMISH-7 Assessment Billing AMISH-7 Assessment Tool: AMISH-7 Assessment 05222 Review of Systems Const Denies headache(s) Eyes Denies loss of vision ENT Denies vertigo, Denies dizziness, Denies headache(s) and Denies sore throat Card Reports chest pain (Right-sided with breathing and bending over), Denies leg edema and Denies lightheadedness Resp Denies cough, Denies hemoptysis and Denies wheezing GI Denies abdominal pain, Denies melena, Denies constipation, Denies diarrhea and Denies vomiting Denies urinary frequency, Denies dysuria and Denies urinary urgency Musc Reports back pain, Reports arthralgias (Multiple), Denies joint swelling, Reports muscle cramps, Denies numbness and Denies tingling Neuro Denies Abnormal speech present, Denies behavioral changes, Denies vertigo, Denies dizziness, Denies headache(s), Denies loss of vision, Denies memory loss, Denies numbness and Denies tingling Psych Denies anxiety, Denies behavioral changes, Denies depression, Denies memory loss and Denies panic attacks Alli/Lymph Denies easy bleeding and Denies easy bruising Aller/Immun Denies wheezing Physical exam (Primary Care) Vital Signs: Last Vital Signs Temp 98.5 F 12/26/24 10:30 Pulse 83 12/26/24 10:30 BP 126/88 12/26/24 10:30 Pulse Ox 97 12/26/24 10:30 Oxygen Delivery Method Room Air 12/26/24 10:30 BMI result Body Mass Index 41.0 Tobacco/Smoking Status: Tobacco use Status Tobacco use date assessed 12/26/24 12/26/24 10:44 Patient Tobacco Use Status Current everyday Tobacco 12/26/24 10:44 Tobacco use type Cigarette 12/26/24 10:44 e-Cigarette/Vaping Use Never Used 12/26/24 10:44 PHQ-9: PHQ-9 Score PHQ-9: Total score 2 12/26/24 11:18 Depression Screening Interpretation: Negative Thrive Assessment: Date of Thrive Assessment Date Thrive assessed 12/26/24 12/26/24 10:44 Currently or been in a relationship where the following occur: No concerns reported Const General: healthy appearing, no acute distress, alert and awake Nutritional Appearance: well nourished Orientation/consciousness: oriented to person, oriented to place and oriented to time HENMT Ears: TM's normal bilaterally General nose exam: Normal nasal mucous membranes and turbinates present Eyes Conjunctivae: conjunctivae normal Sclerae: sclerae normal Pupils: Equal, round and reactive pupils present Neck Neck: Yes no lymphadenopathy and Yes no JVD Thyroid: Thyroid normal Carotids: no bruits Chest Chest palpation & inspection: tenderness (Right side of chest up to right shoulder with palpation) Resp Effort & Inspection: normal respiratory effort and not tachypneic Auscultation: no crackles, no rales, no rhonchi and no wheezes Cardio Rate: regular rate Rhythm: regular rhythm Heart sounds: no murmurs and normal S1 and S2 GI Palpation (GI): Soft to palpation, nontender, no hepatomegaly and no splenomegaly Auscultation: normal bowel sounds General: Yes no CVA tenderness Back/Spine/Pelvis Back: no CVA tenderness Cervical Spine: Cervical spine tenderness Thoracic/Lumbar Spine: thoracic spinal tenderness and lumbar spinal tenderness Skin General skin exam: no rashes or lesions noted and dry skin Neuro General: oriented to person, oriented to place and oriented to time Cranial nerves: Yes Equal, round and reactive pupils present Speech: No Abnormal speech present Gait exam (Neuro): Normal gait present Motor exam (neuro): no tremor noted Extrem Right upper extremity: full ROM Left upper extremity: full ROM Right lower extremity: full ROM; no edema Left lower extremity: full ROM; no edema Psych Mental Status: mental status grossly normal Speech and movement: Normal speech and movement present Affect: normal affect Attitude: cooperative Thought process: Normal thought process present Coding Level of Care Code Est Pt Level 3 (76171) Diagnoses Chest pain, unspecified type R07.9 Chest pain type: unspecified Hypercalcemia E83.52 Additional Codes AMISH-7 Assessment Billing - AMISH-7 Assessment Tool: AMISH-7 Assessment 09316 ([id number]) PHQ-9 - 59519 - PHQ-9 Billing: Yes ([id number]) Time Spent (min) 33 Assessment & Plan Assessment & Plan (1) Chest pain: Code(s): R07.9 - Chest pain, unspecified Category: Medical Qualifiers: Chest pain type: unspecified Qualified Code(s): R07.9 - Chest pain, unspecified Plan: Pain is reproducible on right side of chest up to right shoulder with palpation. Patient was sent for an EKG that showed normal sinus rhythm. Continue ibuprofen 800 mg t.i.d. p.r.n. (2) Hypercalcemia: Code(s): E83.52 - Hypercalcemia Category: Medical Plan: BMP, PTH, ionized calcium ordered for the patient to repeat in 2 weeks to further evaluate Orders: Orders Basic Metabolic Panel 2 Weeks E83.52 - Hypercalcemia PTH Intact Intraoperative 2 Weeks E83.52 - Hypercalcemia Calcium, Ionized 2 Weeks E83.52 - Hypercalcemia Hemoglobin A1c 2 Weeks R73.09 - Other abnormal glucose ECG 12 lead EKG 12/26/24 E83.52 - Hypercalcemia, R07.9 - Chest pain, unspecified Medications: Changed From diclofenac sodium 1% apply to single elbow, wrist or hand; for hand includes palm/fingers/back of hand 2 grams topical QID 100 grams 0RF M51.36 - Other intervertebral disc degeneration, lumbar region To diclofenac sodium 1% (Arthritis Pain (diclofenac)) apply to single elbow, wrist or hand; for hand includes palm/fingers/back of hand 2 grams topical QID 100 grams 0RF M51.36 - Other intervertebral disc degeneration, lumbar region
== END 2024-12-26 11:34 | disposition home or self-care (01) ==
LOC: HO.HMCH 10:25
PROVIDERS: PCP Internal Medicine
DX: R07.9 Chest pain, unspecified (principal); E83.52 Hypercalcemia

== ENCOUNTER → 2024-12-26 10:24 | Outpatient (REF) | payer OTHER, SELFPAY ==
--- NOTE | 2024-12-26 11:48 | ECG_ITS ---
Test Reason : hyper calcemia Blood Pressure : */* mmHG Vent. Rate : 80 BPM Atrial Rate : 80 BPM P-R Int : 134 ms QRS Dur : 82 ms QT Int : 378 ms P-R-T Axes : 30 49 25 degrees QTcB Int : 435 ms Normal sinus rhythm Normal ECG When compared with ECG of 17-Jun-2021 12:03, No significant change was found Referred By: Slava Hoang Electronically Signed By: Alok Chacon
== END ==
LOC: HO.CARD 10:24
PROVIDERS: PCP Internal Medicine
DX: R07.9 Chest pain, unspecified (principal); E83.52 Hypercalcemia
CPT/HCPCS: 93005

== ENCOUNTER → 2024-12-26 11:48 | Outpatient (BNV) | payer OTHER, SELFPAY | PROVIDERS: PCP Internal Medicine; Visit Provider Internal Medicine Cardiovascular Disease | DX: R73.9 Hyperglycemia, unspecified (principal) | CPT/HCPCS: 93010 ==

== ENCOUNTER 2025-02-27 08:57 | Outpatient (REF) | payer OTHER, SELFPAY ==
[2025-02-27 09:20] LABS: MANUAL DIFF FLAG NO
[2025-02-27 10:06] LABS: Basophils Absolute Auto 0.1 X10*3/uL (0.0-0.2); Basophils Percent Auto 0.7 % (0-2); Eosinophils Absolute Auto 0.2 X10*3/uL (0.0-0.4); Eosinophils Percent Auto 3.2 % (0-4); Hematocrit 45.4 % (37.0-47.0); Hemoglobin 14.8 g/dl (12.0-16.0); Imm Gran Abs Auto 0.02 X10*3/uL (0.00-0.03); Imm Gran Pct Auto 0.3 % (0.0-0.4); Lymphocytes Absolute Auto 2.4 X10*3/uL (1.2-4.9); Lymphocytes Percent Auto 34.1 % (20-40); Mean Corpuscular HGB Conc 32.6 g/dl (31.0-35.0); Mean Corpuscular Hemoglobin 28.1 pg (27.0-33.0); Mean Corpuscular Volume 86.1 fL (80.0-98.0); Mean Platelet Volume 10.8 fL (9.4-12.3); Monocytes Absolute Auto 0.4 X10*3/uL (0.1-1.2); Monocytes Percent Auto 6.4 % (2-11); Neutrophils Absolute Auto 3.8 x10*3/uL (2.0-8.3); Neutrophils Percent Auto 55.3 % (45-73); Platelet Count 295 X10*3/uL (160-400); Red Blood Count 5.27 X10*6/uL (4.20-5.50); Red Cell Distribution Width 13.2 % (11.0-16.0); White Blood Count 6.9 X10*3/uL (4.8-10.8)
[2025-02-27 11:03] LABS: Appearance Urine Clear; Color Urine Yellow; Glucose Urine UA Negative (Negative); Leukocyte Esterase Urine Negative (Negative); Nitrite Urine Negative (Negative); UMIC TRIGGER UACC YES; Urine Blood Negative (Negative); Urine Ketones Negative (Negative); Urine Protein 100 (2+) mg/dL (Neg-Trace)
[2025-02-27 11:03] LABS: Estimated Average Glucose 105 mg/dL; Hemoglobin A1c % 5.3 % (<6.0)
[2025-02-27 11:09] LABS: Bacteria Urine Trace (None Seen); Hyaline Casts Urine 0-2 /LPF (0-2); RBC Urine 0-2 /HPF (0-2); WBC Urine 0-5 /HPF (0-5)
[2025-02-27 11:28] LABS: Parathyroid Hormone Intact 53.7 pg/mL (8.7-77.1)
[2025-02-27 13:13] LABS: Alanine Aminotransferase 44 U/L (0-31); Albumin Level 4.6 g/dL (3.5-5.0); Alkaline Phosphatase 62 U/L (39-117); Anion Gap 13 (12-20); Aspartate Amino Transferase 25 U/L (5-31); Bilirubin Total 0.3 mg/dL (0.0-1.0); Blood Urea Nitrogen 12 mg/dL (9-16); Calcium 9.8 mg/dL (8.4-10.2); Carbon Dioxide 25 mmol/L (22-29); Chloride 107 mmol/L (96-108); Cholesterol 153 mg/dL (<200); Estimated Glomerular Filt Rate > 60; Glucose Random 92 mg/dL (60-115); HDL Cholesterol 37 mg/dL (>40); Potassium 4.7 mmol/L (3.3-5.1); Sodium 140 mmol/L (135-145); TSH reflex Free T4 1.63 uIU/mL (0.32-4.0); Total Protein 7.5 g/dL (6.5-8.0); Triglycerides 416 mg/dL (<150)
[2025-02-28 13:53] LABS: Calcium, Ionized 5.2 mg/dL (4.7-5.5)
== END 2025-02-27 08:58 | disposition home or self-care (01) ==
LOC: HO.LAB 08:57
PROVIDERS: PCP Internal Medicine
DX: E78.2 Mixed hyperlipidemia (principal); R07.9 Chest pain, unspecified; G47.33 Obstructive sleep apnea (adult) (pediatric); I10 Essential (primary) hypertension; M51.362 Other intervertebral disc degeneration, lumbar region with discogenic back pain and lower extremity pain; M54.41 Lumbago with sciatica, right side; R73.01 Impaired fasting glucose; M79.7 Fibromyalgia; G56.03 Carpal tunnel syndrome, bilateral upper limbs; M76.40 Tibial collateral bursitis [Pellegrini-Stieda], unspecified leg; M25.551 Pain in right hip; M25.552 Pain in left hip; G47.00 Insomnia, unspecified; F41.9 Anxiety disorder, unspecified; F31.60 Bipolar disorder, current episode mixed, unspecified; F17.200 Nicotine dependence, unspecified, uncomplicated; E66.01 Morbid (severe) obesity due to excess calories; Z68.41 Body mass index [BMI] 40.0-44.9, adult; Z79.899 Other long term (current) drug therapy; E83.52 Hypercalcemia; D64.9 Anemia, unspecified; R73.09 Other abnormal glucose; E78.00 Pure hypercholesterolemia, unspecified; Z91.09 Other allergy status, other than to drugs and biological substances
CPT/HCPCS: 36415; 80053; 80061; 81001; 81003; 82306; 82330; 83036; 83970; 84443; 85025; 86003; 96127; 99212

== ENCOUNTER 2025-02-27 09:27 | Outpatient (AMB) | payer OTHER, SELFPAY ==
--- NOTE | 2025-02-27 09:28 | A.OFFPC_ITS ---
Vital Signs 02/27/25 09:29 Height 5 ft 5 in Weight 244 lb BMI 40.6 BP 122/80 Blood Pressure Location Lt brachial Position Sitting Pulse 83 Pulse Source Pulse Oximeter Pulse Oximetry (%) 97 Oxygen Delivery Method Room Air Intake Visit Reasons: 3mth f/u [employer] Required: No Accompanied by: Self / Same As Patient Allergies hydrocodone [From Vicodin] Allergy (Unknown, Verified 02/27/25 09:49) nausea Anesthesia S/I-40 Allergy (Unknown, Uncoded 02/27/25 09:49) vomiting Medication List - Last Reconciled 02/27/25 by Timothy Garcia MD aripiprazole 20 mg PO BEDTIME PRN benzocaine-menthol 15-2.6 mg (Cepacol Sore Throat (benzocaine-menthol)) 1 daisy mucous membrane Q2-4H PRN clonazepam (Klonopin) 0.5 mg PO BID PRN 30 days diazepam 2 mg PO DAILY diclofenac sodium 1% (Arthritis Pain (diclofenac)) 2 grams topical QID gabapentin 100 mg PO BEDTIME 30 days hydroxyzine HCl 50 mg PO DAILY ibuprofen 800 mg PO TID PRN 30 days [INSPIRE As directed] metoprolol tartrate 50 mg PO BID naproxen 500 mg PO BID PRN 7 days oxcarbazepine 300 mg PO BID sertraline (Zoloft) 50 mg PO DAILY tramadol 50 mg PO BID PRN Tobacco use date assessed: 02/27/25 Dental Screening Dental Screen Date: 02/27/25 Did you have a dental visit in the last 12 months?: No Did you have a dental problem in the last 6 months where you did not have access to dental care?: No Was dental information given to patient?: No HPI 3mth f/u HPI Details Patient comes in today for her follow-up visit States that she is still experiencing increased pain all over, including myalgia and over multiple joints She also still has occasional sharp chest pains and occasional chest pressure/discomfort, which she feels are mostly due to stress/anxiety She had a stress test done back in July 2024 but the test was incomplete due to physical deconditioning as patient got very short of breath well into the procedure; there were however no ischemic changes noted throughout her exam She also had a coronary CT done at [facility] a couple of months ago on 01/01/2025 Patient states that she just went to the lab a few minutes ago to get her labs done She denies any headaches or dizziness Denies any increased shortness of breath Still (+) on and off nausea but no vomiting, no abdominal pain and no change in bowel habits noted [facility] Medical History Carpal tunnel syndrome, bilateral Mixed hyperlipidemia Lumbar degenerative disc disease Morbid obesity with BMI of 40.0-44.9, adult Smoker Blurring of vision Urinary frequency Fatigue Pain and swelling of left lower extremity Left knee pain Surgical History History of cholecystectomy History of tonsillectomy Family History Father Medical history unknown Mother Lung cancer COPD (chronic obstructive pulmonary disease) Epilepsy Sister Bipolar 1 disorder Family/Other Breast cancer Hypertension Asthma Maternal Grandmother Stroke Social History Housing: Apartment Alcohol intake: never Patient Tobacco Use Status: Current everyday Tobacco user Tobacco use type: Cigarette Cigarettes Per Day: 3 e-Cigarette/Vaping Use: Never Used Second Hand Smoke Exposure: Yes service: No Current occupational status: disabled Current occupational exposures/hazards: No Cognitive needs: No Hearing needs: No Vision needs: No Questionnaire PHQ-9 Over the last 2 weeks, how often have you been bothered by any of the following problems? 1. Little interest or pleasure in doing things: several days 2. Feeling down, depressed, or hopeless: several days 3. Trouble falling or staying asleep, or sleeping too much: several days 4. Feeling tired or having little energy: several days 5. Poor appetite or overeating: several days 6. Feeling bad about yourself - or that you are a failure or have let yourself or your family down: not at all 7. Trouble concentrating on things, such as reading the newspaper or watching television: several days 8. Moving or speaking so slowly that other people could have noticed. Or the opposite - being so fidgety or restless that you have been moving around a lot more than usual: not at all 9. Thoughts that you would be better off or of hurting yourself in some way: not at all Total score: 6 Depression Screening Interpretation: Positive Depression Screening Follow-up: Existing condition and In treatment Depression Screening Done: Yes 23530 - PHQ-9 Billing: Yes Source: Developed by Drs. Johnson Baum, Linda Beltran, Ayush Garcia and colleagues, with an educational mirna from [employer]. Thrive Questionnaire Date Thrive assessed: 02/27/25 I am a: Patient What is your living situation today?: I have a steady place to live Within the past 12 months, did the food you bought not last and you didn't have the money to get more?: Never true Within the past 12 months, did you worry whether your food would run out before you got money to buy more?: Never true Do you have trouble paying for medicines?: No Do you have trouble getting transportation to medical appointments?: No Do you have trouble paying your heating and electricity bill?: No Do you have trouble taking care of your child, family member or friend?: No Do you have trouble with day-to-day activities such as bathing, preparing meals, shopping, managing finances, etc.?: No Are you currently unemployed and looking for a job?: I choose not to answer this question Are you interested in more education?: No Please select the resources that you would like help with: None Currently or been in a relationship where the following occur: No concerns reported THRIVE Score: 0 AUDIT C Alcohol Use Questionnaire (AUDIT-C) 1. How often do you have a drink containing alcohol?: Never 3. How often do you have six or more drinks on one occasion?: Never Total Score: 0 Score Reviewed/Action Taken: Yes AMISH-7 AMB Questionnaire AMISH-7 Date AMISH - 7 assessed: 02/27/25 Feeling nervous, anxious, or on edge: 1 = Several days Not being able to stop or control worryin = Several days Worrying too much about different things: 1 = Several days Trouble relaxin = Several days Being so restless that it is hard to sit still: 0 = Not at all Becoming easily annoyed or irritable: 1 = Several days Feeling afraid as if something awful might happen: 0 = Not at all Total AMISH-7 score (0-4 normal; 5-9 mild; 10-14 moderate; 15-21 severe): 5 Source: Developed by Drs. Johnson Baum, Linda Beltran, Ayush Garcia and colleagues, with an educational mirna from [employer]. Review of Systems Const Reports body aches (diffuse), Denies chills, Reports fatigue, Denies fever(s) and Denies headache(s) ENT Denies dysphagia, Denies dizziness, Denies otalgia, Denies headache(s), Reports neck pain, Denies odynophagia and Denies sore throat Card Denies chest pain (but (+) pressure/discomfort at times), Denies rapid heart rate, Denies irregular heart rhythm, Denies palpitations and Reports dyspnea on exertion (mild) Resp Denies chest congestion, Denies cough and Reports dyspnea on exertion (mild) GI Reports abdominal pain (on and off, usually in the morning), Denies constipation, Denies dysphagia, Denies heartburn, Denies diarrhea, Reports nausea (recurrent, mostly in AM when she wakes up ), Denies odynophagia and Denies vomiting Denies hematuria, Denies urinary frequency, Denies nocturia, Denies dysuria, Denies urinary incontinence and Denies urinary urgency Musc Reports as per HPI, Reports back pain (increased recurrent pain over the right lower back - see HPI), Reports myalgias (diffuse), Reports arthralgias (involving multiple joints, especially over both hips and both knees), Denies joint swelling, Reports muscle weakness (on and off in both hands ), Reports neck pain, Reports numbness (on and off in both hands) and Reports tingling Skin/Breast Denies rash Neuro Denies dizziness, Denies headache(s), Reports numbness (on and off in both hands), Reports tingling and Denies paresthesias Psych Reports anxiety and Reports depression Endo Reports fatigue and Denies palpitations Alli/Lymph Denies easy bruising Physical exam (Primary Care) Vital Signs: Last Vital Signs Pulse 83 02/27/25 09:29 BP 122/80 02/27/25 09:29 Pulse Ox 97 02/27/25 09:29 Oxygen Delivery Method Room Air 02/27/25 09:29 BMI result Body Mass Index 40.6 Tobacco/Smoking Status: Tobacco use Status Tobacco use date assessed 02/27/25 02/27/25 09:35 Patient Tobacco Use Status Current everyday Tobacco 02/27/25 09:35 Tobacco use type Cigarette 02/27/25 09:35 e-Cigarette/Vaping Use Never Used 02/27/25 09:35 PHQ-9: PHQ-9 Score PHQ-9: Total score 6 02/27/25 09:50 Depression Screening Interpretation: Positive Depression Screening Follow-up: Existing condition and In treatment Thrive Assessment: Date of Thrive Assessment Date Thrive assessed 02/27/25 02/27/25 09:35 Currently or been in a relationship where the following occur: No concerns reported Const General: no acute distress and alert HENMT Ears: TM's normal bilaterally and EAC's normal Throat: Yes posterior oropharynx normal and Yes tonsils normal (no TP congestion) Neck Neck: Yes no lymphadenopathy and Yes supple Thyroid: Thyroid normal Resp Auscultation: clear to auscultation bilaterally, no rales and no wheezes Cardio Rate: regular rate Rhythm: regular rhythm Heart sounds: no murmurs GI Palpation (GI): Soft to palpation and nontender Auscultation: normal bowel sounds General: Yes no CVA tenderness Back/Spine/Pelvis Back: no CVA tenderness Thoracic/Lumbar Spine: lumbar spinal tenderness (mild) Sacroiliac joints: on the right tender to palpation Skin Rashes: no rashes Extrem General: Yes no clubbing, cyanosis or edema Right upper extremity: shoulder/upper arm Details: tenderness (diffusely over the scapular area) Left upper extremity: shoulder/upper arm Details: tenderness (diffusely over the scapular areas) Right lower extremity: hip/thigh Details: tenderness Location: of the hip and knee Details: tenderness; no swelling Left lower extremity: hip/thigh Details: tenderness Location: of the hip and knee Details: tenderness; no swelling Coding Level of Care Code Est Pt Level 4 (24531) Diagnoses Mixed hyperlipidemia E78.2 Chest pain, unspecified type R07.9 Chest pain type: unspecified JOANN (obstructive sleep apnea) G47.33 Benign essential hypertension I10 Degeneration of intervertebral disc of lumbar region with discogenic back pain and lower extremity pain M51.362 Disc-related pain type: discogenic back pain and lower extremity pain Acute right-sided low back pain with right-sided sciatica M54.41 Chronicity: acute Sciatica laterality: sciatica of right side Impaired fasting glucose R73.01 Fibromyalgia M79.7 Carpal tunnel syndrome, bilateral G56.03 Janell-Stieda syndrome, 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 Laterality: unspecified laterality Bilateral hip pain M25.551; M25.552 Insomnia, unspecified type G47.00 Insomnia type: unspecified Anxiety F41.9 Bipolar affective disorder, current episode mixed, current episode severity unspecified F31.60 Active/Remission status: currently active Current bipolar episode type: mixed Current episode severity: unspecified Smoker F17.200 Morbid obesity with BMI of 40.0-44.9, adult E66.01; Z68.41 Additional Codes PHQ-9 - 42442 - PHQ-9 Billing: Yes ([id number]) Assessment & Plan Assessment & Plan (1) Mixed hyperlipidemia: Code(s): E78.2 - Mixed hyperlipidemia Category: Medical Plan: Patient went to get her follow up labs done earlier today - results are not available for review yet at this time Reinforced low-cholesterol diet (2) Chest pain: Code(s): R07.9 - Chest pain, unspecified Category: Medical Qualifiers: Chest pain type: unspecified Qualified Code(s): R07.9 - Chest pain, unspecified Plan: Patient was evaluated by Cardiology a couple of months ago and sent for cardiac workups She recently had cardiac stress testing done but could not complete the exam due to fatigue and physical deconditioning Her coronary CT done a couple of months ago in December 2024 came out normal She has since been advised to continue with aggressive risk reduction and is advised again today that she needs to quit smoking completely (3) JOANN (obstructive sleep apnea): Code(s): G47.33 - Obstructive sleep apnea (adult) (pediatric) Category: Medical Plan: She was started on CPAP therapy by Dr. Downey but she had trouble tolerating the mask she was using Per request, we gave her an Rx for the Inspire device and she is instructed to bring this over to the company who provided her with her CPAP device but it appears that this was not covered by her insurance Follow up with Sleep Medicine as scheduled (4) Benign essential hypertension: Code(s): I10 - Essential (primary) hypertension Category: Medical Plan: Reinforced low sodium diet - goal is systolic BP of at least 120 to 130 mm or less Continue Metoprolol 50 mg BID (5) Lumbar degenerative disc disease: Code(s): M51.36 - Other intervertebral disc degeneration, lumbar region Category: Medical Qualifiers: Disc-related pain type: discogenic back pain and lower extremity pain Qualified Code(s): M51.362 - Other intervertebral disc degeneration, lumbar region with discogenic back pain and lower extremity pain Plan: Lumbar spine MRI done back in 08/2019 revealed (+) moderate facet arthropathy and a posterior disc protrusion at L4-L5 that extends into the neural foramina but there is no nerve root impingement and no central canal stenosis. There were also milder spondylitic and facet arthropathic changes at other levels Repeat lumbar spine x-rays done in August 2023 revealed only (+) exaggerated lordosis of the lumbar spine Advised that before her insurance will approve a repeat lumbar spine MRI, she will likely have to trial and fail physical therapy first before that will be approved Reinforced activity and weight-lifting restrictions Continue Tramadol 50 mg 1 to 2 times a day as needed for pain for now - Rx refilled Was seen by pain management months ago but patient reportedly refused any interventional Tx and was advised that without trying those, she cannot be evaluated for eligibility for the opioid Rx program; she has an appointment with pain management again coming up next week She has inquired previously about medical marijuana as an option and she has been advised that this is something she will have to pursue on her own as we are not in any way involved with medical marijuana management; she was also advised that most insurances do not cover medical marijuana and she will most likely have to pay [id number] for them She was recommended by rheumatology recently to consider Gabapentin and she agreed to start this at her last appointment Continue Gabapentin 100 mg Q HS (6) Right-sided low back pain with sciatica: Code(s): M54.41 - Lumbago with sciatica, right side Category: Medical Qualifiers: Chronicity: acute Sciatica laterality: sciatica of right side Qualified Code(s): M54.41 - Lumbago with sciatica, right side Plan: Reinforced activity and weight-lifting restrictions X-rays of the SI joints done a few months ago came back normal/negative (7) Impaired fasting glucose: Code(s): R73.01 - Impaired fasting glucose Category: Medical Plan: Her in-office HgbA1c were normal at 5.5% and 5.7% when previously checked HgbA1c was also normal at 5.4% and at 5.3% in the past Reinforced low calorie/low carb diet (8) Fibromyalgia: Code(s): M79.7 - Fibromyalgia Category: Medical Plan: She has been advised by rheumatology last year that a lot of her symptoms, including her myalgia, are consistent with fibromyalgia She is again encouraged to exercise regularly to help manage her fibromyalgia symptoms Continue Gabapentin 100 mg Q HS (9) Carpal tunnel syndrome, bilateral: Code(s): G56.03 - Carpal tunnel syndrome, bilateral upper limbs Category: Medical Plan: EMG and NCV of both upper extremities done last year in August 2023 revealed (+) 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 She also has early carpal tunnel syndrome on the left. 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 - Tibial collateral bursitis [Janell-Stieda], unspecified leg Category: Medical Qualifiers: Laterality: unspecified laterality Qualified Code(s): M76.40 - Tibial collateral bursitis [Janell-Stieda], unspecified leg Plan: X-rays of both knees done late last year revealed findings of Chronic Janell-Stieda complex Follow up with orthopedics as scheduled (11) Bilateral hip pain: Code(s): M25.551 - Pain in right hip; M25.552 - Pain in left hip Category: Medical Plan: Patient is advised that her hip x-rays done last year came back normal (12) Insomnia: Code(s): G47.00 - Insomnia, unspecified Category: Medical Qualifiers: Insomnia type: unspecified Qualified Code(s): G47.00 - Insomnia, unspecified Plan: Sleep hygiene reinforced Continue Trazodone 50 mg Q HS PRN (13) Anxiety: Code(s): F41.9 - Anxiety disorder, unspecified Category: Medical Plan: Continue Clonazepam 0.5 mg BID PRN and Hydroxyzine 50 mg PRN (14) Bipolar affective disorder: Code(s): F31.9 - Bipolar disorder, unspecified Category: Medical Qualifiers: Active/Remission status: currently active Current bipolar episode type: mixed Current episode severity: unspecified Qualified Code(s): F31.60 - Bipolar disorder, current episode mixed, unspecified Plan: Continue Sertraline 50 mg QD, Aripiprazole 20 mg Q HS and Oxcarbazepine 300 mg BID Follow up with psychiatry as scheduled (15) Smoker: Comment: SHE CLAIMS THAT SHE IS SMOKING 7-10 CIGARETTES A DAY AND TRYING TO CUT DOWN. AGAIN COUNSELED THAT SHE SHOULD TRY TO QUIT COMPLETELY. Code(s): F17.200 - Nicotine dependence, unspecified, uncomplicated Category: Social Hx Plan: Patient is counseled again on complete smoking cessation (16) Morbid obesity with BMI of 40.0-44.9, adult: Code(s): E66.01 - Morbid (severe) obesity due to excess calories; Z68.41 - Body mass index [BMI] 40.0-44.9, adult Category: Medical Plan: Reinforced diet/exercise as tolerated/lose weight She was previously referred to weight management and for bariatric surgery consideration but patient decided to try some medications first Will now start her on a trial of Zepbound 2.5 mg SQ once a week Plan Follow up in 3 months Medications: New tirzepatide (weight loss) (Zepbound) for weeks 1 through 4 2.5 mg (0.5 mL) subcut QWEEK 4 weeks 2 mL 0RF E66.01 - Morbid (severe) obesity due to excess calories, Z68.41 - Body mass index [BMI] 40.0-44.9, adult
[2025-02-27 09:29] VITALS: BP 122/80; PULSE 83; O2SAT 97; BMI 40.6
--- OUTSIDE RECORDS SUMMARY | 2025-02-27 09:42 | XMS_ITS | Clinical Summary ---
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 Role Phone Unavailable Primary Care Provider Unavailabl e Immunizations Immunization Administration Dates Next Due Influenza injectable quadriv alent IIV4 with preservative 08/23/2017 Influenza injectable quadriv alent preservative free 07/18/2023,07/07/2022,09/22/2021,2018,12/25/2018 Tdap 04/24/2017 Social History Tobacco Use Types Packs/Day Years Used Date Smoking Tobacco: Never Assessed Comments Unknown Sex and Gender Information Value Date Recorded Sex Assigned at Female 08/08/2022 10:14 AM EDT Legal Sex Female 10:14 AM EDT Gender Identity Choose not to disclose 10:14 AM EDT Sexual Orientation Choose not to disclose 2021 10:14 AM EDT Plan of Treatment Health Maintenance Due Date Last Done Comments CT Colonography 1977 Colonoscopy 1977 Colorectal Cancer Screening 1977 Depression Screening 1977 FIT DNA/Cologuard 1977 FIT 1977 FOBT 1977 HIV Screening 1977 Lipid Panel 1977 SDOH Screening 1977 Sigmoidoscopy 1977 Disability Screening 1977 Alcohol/Substance Use Screening 1989 Tobacco Screening 1989 Family Planning (PISQ) 1992 Hepatitis C Screening 1995 Hepatitis B Vaccines (1 of 3 - 19+ 3-dose series) 1996 Pap Smear 1998 Cervical Cancer Screening 2007 HPV/Cotest 2007 Mammogram 12/27/2019 12/26/2017 COVID-19 Vaccine ( season) 2024 09/28/2021, 01/21/2021, 12/24/2020 Influenza Vaccine (#1) 2024 3, 07/07/2022, 09/22/2021, Additional history exists DTaP/Tdap/Td Vaccines (2 - Td or Tdap) 04/24/2027 04/24/2017 Zoster Vaccines (1 of 2) 2027 RSV Patients and Patients Aged 60 years or older (1 - 1-dose 75+ series) 2052 HIB Vaccines Aged Out No longer eligi ble based on patient's age to complete this topic HPV Vaccines Aged Out No longer eligi ble based on patient's age to complete this topic Hepatitis A Vaccines Aged Out No long er eligible based on patient's age to complete this topic IPV Vaccines Aged Out No longer eligi ble based on patient's age to complete this topic Meningococcal B Vaccine Aged Out No l onger eligible based on patient's age to complete this topic Meningococcal Vaccine Aged Out No shireen matilde eligible based on patient's age to complete this topic Pneumococcal Vaccine: Pediatrics (0 to 5 Years) and At-Risk Patients (6 to 49) Years) Aged Out No longer eligible based on patient's age to complete this topic RSV under 20 months Aged Out No longe r eligible based on patient's age to complete this topic Rotavirus Vaccines Aged Out No longer eligible based on patient's age to complete this topic Procedures Procedure Name Priority Date/Time Associated Diagnosis Comments BI MAMMOGRAM SCREENING BILATERAL Routine 12/26/2017 4:38 PM EDT from Last 3 Months or Most Recently Relevant to Health Maintenance Results * DIGITAL BILATERAL SCREEN 1 (12/26/2017 4:38 PM EDT) Anatomical Region Laterality Modality Breast Bilateral Mammography 12/26/2017 4:38 PM EDT Narrative 12/26/2017 4:42 PM EDT Refer to the Notes tab for result details [facility] Procedure: DIGITAL BILATERAL SCREEN 1 Procedure Note Provider, MD José Miguel - 03/25/2023 Refer to the Notes tab for result details [facility] Procedure: DIGITAL BILATERAL SCREEN 1 Annmarie Gonsalez MD IMG BI PROCEDURES Final Resul t from Last 3 Months or Most Recently Relevant to Health Maintenance Insurance [facility]
== END 2025-02-27 10:04 | disposition home or self-care (01) ==
LOC: HO.HMCH 09:27
PROVIDERS: PCP Internal Medicine; Visit Provider Internal Medicine
DX: E78.2 Mixed hyperlipidemia (principal); E66.01 Morbid (severe) obesity due to excess calories; F31.60 Bipolar disorder, current episode mixed, unspecified; Z68.41 Body mass index [BMI] 40.0-44.9, adult; R07.9 Chest pain, unspecified; G47.33 Obstructive sleep apnea (adult) (pediatric); I10 Essential (primary) hypertension; M51.362 Other intervertebral disc degeneration, lumbar region with discogenic back pain and lower extremity pain; M54.41 Lumbago with sciatica, right side; R73.01 Impaired fasting glucose; M79.7 Fibromyalgia; G56.03 Carpal tunnel syndrome, bilateral upper limbs

== ENCOUNTER 2025-07-28 09:06 | Outpatient (AMB) | payer OTHER, SELFPAY ==
--- NOTE | 2025-07-28 09:13 | A.OFFPC_ITS ---
Vital Signs 07/28/25 09:14 Height 5 ft 5 in Weight 246 lb 6 oz BMI 41.0 BP 102/70 Blood Pressure Location Lt brachial Position Sitting Respiration 18 Pulse 79 Pulse Source Pulse Oximeter Temp 97.3 F Temp Source Temporal Artery Scan Pulse Oximetry (%) 97 Oxygen Delivery Method Room Air Intake Visit Reasons: 3 month f/u General Supervisor Required: No Accompanied by: Self / Same As Patient Allergies hydrocodone (From Vicodin) Allergy (Unknown, Verified 07/28/25 10:24) nausea Anesthesia S/I-40 Allergy (Unknown, Uncoded 07/28/25 10:24) vomiting Medication List - Last Reconciled 07/28/25 by MARCI Santillan aripiprazole 20 mg PO BEDTIME PRN benzocaine-menthol 15-2.6 mg (Cepacol Sore Throat (benzocaine-menthol)) 1 daisy mucous membrane Q2-4H PRN clonazepam (Klonopin) 0.5 mg PO BID PRN 30 days diazepam 2 mg PO DAILY diclofenac sodium 1% (Arthritis Pain (diclofenac)) 2 grams topical QID gabapentin 100 mg PO BEDTIME 30 days hydroxyzine HCl 50 mg PO DAILY ibuprofen 800 mg PO TID PRN 30 days [INSPIRE As directed] metoprolol tartrate 50 mg PO BID naproxen 500 mg PO BID PRN 7 days oxcarbazepine 300 mg PO BID sertraline (Zoloft) 50 mg PO DAILY tirzepatide (weight loss) (Zepbound) 2.5 mg (0.5 mL) subcut QWEEK 4 weeks tramadol 50 mg PO BID PRN Tobacco use date assessed: 07/28/25 Dental Screening Dental Screen Date: 07/28/25 Did you have a dental visit in the last 12 months?: No Did you have a dental problem in the last 6 months where you did not have access to dental care?: No Was dental information given to patient?: No HPI 3 month f/u HPI Details The patient is a 50-year-old female presenting with concerns regarding weight management and associated health conditions. The patient reports experiencing sciatic nerve pain, which radiates from the lower back down to both legs, predominantly affecting the right side. She also experiences shooting pain in her arms, which she attributes to her known lumbar disc disease and fibromyalgia. The patient manages her pain with gabapentin as needed, which was recently increased. The patient has a history of obesity and has been attempting to obtain weight loss medication, but has faced insurance denials for medications such as Zepbound and Wegovy. She expresses frustration with her current physician's approach and feels unsupported in her weight loss journey. Her blood pressure has been stable, recorded at 102/70 mmHg during the visit. The patient has a history of hypertension, which she reports is well-controlled. She also reports a family history of emphysema, with her mother and grandmother affected by the condition. The patient reports sleep apnea but is unable to tolerate CPAP therapy due to claustrophobia. She has been advised to try alternative treatments but has not yet pursued them due to not being the right fit. For instance, the patient cannot take phentermine because she is already on a stimulant. The patient experiences symptoms of gastroesophageal reflux disease, including nausea upon waking, which she suspects may be related to her eating habits. She acknowledges eating late at night and consuming foods that may exacerbate her symptoms. The patient struggles with mental health and eating is part of her coping mechanism. However, gaining weight has been stressful for her and deteriorating her mental health and causing her to stress eat. The patient has a history of depression and reports using food as a coping mechanism. She has reduced smoking but notes an increase in food consumption as a result. 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 Weight loss journey: The patient has been taking care of her special need children and has been having difficulty finding time to get on a regular exercise scheduled. She is morbidly obese and the adding of obstructive sleep apnea aiding her with weight loss would be vital to her wellbeing. The patient would be a good candidate for a GLP-1. She have seen a nutrition in the past but was unable to comply due to her hectic home life caring for her special needs kids and the instability of her mental health for which she has been working with her psychiatrist to improve. [facility] Medical History Carpal tunnel syndrome, bilateral Mixed hyperlipidemia Lumbar degenerative disc disease Morbid obesity with BMI of 40.0-44.9, adult Smoker Blurring of vision Urinary frequency Fatigue Pain and swelling of left lower extremity Left knee pain Surgical History History of cholecystectomy History of tonsillectomy Family History Father Medical history unknown Mother Lung cancer COPD (chronic obstructive pulmonary disease) Epilepsy Sister Bipolar 1 disorder Family/Other Breast cancer Hypertension Asthma Maternal Grandmother Stroke Social History Housing: Apartment Alcohol intake: never Patient Tobacco Use Status: Current everyday Tobacco user Tobacco use type: Cigarette Cigarettes Per Day: 3 e-Cigarette/Vaping Use: Never Used Second Hand Smoke Exposure: Yes service: No Current occupational status: disabled Current occupational exposures/hazards: No Cognitive needs: No Hearing needs: No Vision needs: No Questionnaire Thrive Questionnaire Date Thrive assessed: 02/27/25 I am a: Patient What is your living situation today?: I have a steady place to live Within the past 12 months, did the food you bought not last and you didn't have the money to get more?: Never true Within the past 12 months, did you worry whether your food would run out before you got money to buy more?: Never true Do you have trouble paying for medicines?: No Do you have trouble getting transportation to medical appointments?: No Do you have trouble paying your heating and electricity bill?: No Do you have trouble taking care of your child, family member or friend?: No Do you have trouble with day-to-day activities such as bathing, preparing meals, shopping, managing finances, etc.?: No Are you currently unemployed and looking for a job?: I choose not to answer this question Are you interested in more education?: No Please select the resources that you would like help with: None Currently or been in a relationship where the following occur: No concerns reported THRIVE Score: 0 AMISH-7 AMB Questionnaire AMISH-7 Date AMISH - 7 assessed: 02/27/25 Source: Developed by Drs. Johnson Baum, Linda Beltran, Ayush Garcia and colleagues, with an educational mirna from [employer]. Review of Systems Const Reports daytime sleepiness, Reports difficulty sleeping, Reports fatigue, Denies headache(s), Reports lethargy, Reports snoring, Reports stops breathing during sleep and Reports weight gain Eyes Denies loss of vision ENT Denies vertigo, Denies dizziness, Denies headache(s) and Denies sore throat Card Denies chest pain, Denies leg edema and Denies lightheadedness Resp Denies cough, Denies hemoptysis, Reports snoring and Denies wheezing GI Denies abdominal pain, Denies melena, Denies constipation, Denies diarrhea and Denies vomiting Denies urinary frequency, Denies dysuria and Denies urinary urgency Musc Reports back pain, Reports arthralgias (bilateral hips, left shoulder, left wrist), Denies joint swelling, Denies numbness, Reports radiating pain into limb (left side) and Denies tingling Skin/Breast Denies lesions and Denies rash Neuro Denies Abnormal speech present, Denies behavioral changes, Denies vertigo, Denies dizziness, Denies headache(s), Denies loss of vision, Denies memory loss, Denies numbness and Denies tingling Psych Reports anxiety, Denies behavioral changes, Reports depression, Denies memory loss and Denies panic attacks Endo Reports fatigue Alli/Lymph Denies easy bleeding and Denies easy bruising Aller/Immun Denies wheezing Physical exam (Primary Care) Vital Signs: Last Vital Signs Temp 97.3 F 07/28/25 09:14 Pulse 79 07/28/25 09:14 Resp 18 07/28/25 09:14 BP 102/70 07/28/25 09:14 Pulse Ox 97 07/28/25 09:14 Oxygen Delivery Method Room Air 07/28/25 09:14 BMI result Body Mass Index 41.0 Tobacco/Smoking Status: Tobacco use Status Tobacco use date assessed 07/28/25 07/28/25 09:21 Patient Tobacco Use Status Current everyday Tobacco 07/28/25 09:21 Tobacco use type Cigarette 07/28/25 09:21 e-Cigarette/Vaping Use Never Used 07/28/25 09:21 Thrive Assessment: Date of Thrive Assessment Date Thrive assessed 02/27/25 07/28/25 09:21 Currently or been in a relationship where the following occur: No concerns reported Const General: healthy appearing, no acute distress, alert and awake Nutritional Appearance: well nourished Orientation/consciousness: oriented to person, oriented to place and oriented to time HENMT Ears: TM's normal bilaterally General nose exam: Normal nasal mucous membranes and turbinates present Eyes Conjunctivae: conjunctivae normal Sclerae: sclerae normal Pupils: Equal, round and reactive pupils present Neck Neck: Yes no lymphadenopathy and Yes no JVD Thyroid: Thyroid normal Carotids: no bruits Resp Effort & Inspection: normal respiratory effort and not tachypneic Auscultation: no crackles, no rales, no rhonchi and no wheezes Cardio Rate: regular rate Rhythm: regular rhythm Heart sounds: S1 normal heart sound present, S2 normal heart sound present, no murmurs and normal S1 and S2 GI Inspection: Yes obesity Palpation (GI): Soft to palpation, nontender, no hepatomegaly and no splenomegaly Auscultation: normal bowel sounds General: Yes no CVA tenderness Back/Spine/Pelvis Back: no CVA tenderness Thoracic/Lumbar Spine: No lumbar spinal tenderness Skin General skin exam: no rashes or lesions noted and dry skin Neuro General: oriented to person, oriented to place and oriented to time Cranial nerves: Yes Equal, round and reactive pupils present Speech: No Abnormal speech present Gait exam (Neuro): Normal gait present Motor exam (neuro): no tremor noted Extrem Right upper extremity: full ROM Left upper extremity: full ROM, shoulder/upper arm (intermittent pain and numbness down the arm with activity) Details: no tenderness and no swelling and wrist Right lower extremity: full ROM and hip/thigh Details: no tenderness and no swelling Left lower extremity: full ROM and hip/thigh Details: no tenderness and no swelling Psych Mental Status: mental status grossly normal Speech and movement: Normal speech and movement present Affect: normal affect Attitude: cooperative Thought process: Normal thought process present Results Reviewed Results Reviewed: Laboratory Tests 02/27/25 02/27/25 09:16 09:18 WBC 6.9 RBC 5.27 Hgb 14.8 Hct 45.4 MCV 86.1 MCH 28.1 MCHC 32.6 RDW 13.2 Plt Count 295 MPV 10.8 Sodium 140 Potassium 4.7 Chloride 107 Carbon Dioxide 25 Anion Gap 13 BUN 12 Creatinine 0.57 Estimated GFR > 60 Random Glucose 92 Estimat Average Glucose 105 Hemoglobin A1c % 5.3 Calcium 9.8 Ionized Calcium 5.2 Total Bilirubin 0.3 AST 25 ALT 44 H Alkaline Phosphatase 62 Total Protein 7.5 Albumin 4.6 Triglycerides 416 H Cholesterol 153 HDL Cholesterol 37 L 25-OH Vitamin D Total 31.0 TSH 1.63 PTH Intact 53.7 Urine Color Yellow Urine Appearance Clear Urine pH 5.0 Ur Specific [place] 1.020 Urine Protein 100 (2+) H Urine Glucose (UA) Negative Urine Ketones Negative Urine Blood Negative Urine Nitrite Negative Ur Leukocyte Esterase Negative Urine RBC 0-2 Urine WBC 0-5 Ur Squamous Epith Cells 6-10 Urine Bacteria Trace Hyaline Casts 0-2 Coding Level of Care Code Est Pt Level 4 (69992) Diagnoses Anxiety F41.9 Mixed hyperlipidemia E78.2 JOANN (obstructive sleep apnea) G47.33 Benign essential hypertension I10 Lumbar degenerative disc disease M51.36 Acute right-sided low back pain with right-sided sciatica M54.41 Chronicity: acute Sciatica laterality: sciatica of right side Impaired fasting glucose R73.01 Fibromyalgia M79.7 Carpal tunnel syndrome, bilateral G56.03 Janell-Stieda syndrome, 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 Laterality: unspecified laterality Bilateral hip pain M25.551; M25.552 Insomnia, unspecified type G47.00 Insomnia type: unspecified Bipolar affective disorder, current episode mixed, current episode severity unspecified F31.60 Active/Remission status: currently active Current bipolar episode type: mixed Current episode severity: unspecified Smoker F17.200 Morbid obesity with BMI of 40.0-44.9, adult E66.01; Z68.41 Time Spent (min) 39 Assessment & Plan Assessment & Plan (1) Anxiety: Code(s): F41.9 - Anxiety disorder, unspecified Category: Medical Plan: Encouraged CBT Denies SI/HI Continue diazepam 2 mg daily, Zoloft 50 mg daily, Clonazepam 0.5 mg BID PRN and Hydroxyzine 50 mg PRN Follow up with Psychiatry as scheduled (2) Mixed hyperlipidemia: Code(s): E78.2 - Mixed hyperlipidemia Category: Medical Plan: Triglycerides 416, total cholesterol 153, unable to calculate LDL, HDL 37 Discussed lifestyle modifications including dietary changes and physical activity Discussed extensively with the patient about cutting down on sweets, processed foods, carbohydrates etc. that has been increasing her triglycerides We will repeat lipid panel in 3 months (3) JOANN (obstructive sleep apnea): Code(s): G47.33 - Obstructive sleep apnea (adult) (pediatric) Category: Medical Plan: She was started on CPAP therapy by Dr. Downey but she had trouble tolerating the mask she was using Per request, we gave her an Rx for the Inspire device and she is instructed to bring this over to the company who provided her with her CPAP device but it appears that this was not covered by her insurance Follow up with Sleep Medicine as scheduled (4) Benign essential hypertension: Code(s): I10 - Essential (primary) hypertension Category: Medical Plan: Reinforced low sodium diet - goal is systolic BP of at least 120 to 130 mm or less Continue Metoprolol 50 mg BID (5) Lumbar degenerative disc disease: Code(s): M51.36 - Other intervertebral disc degeneration, lumbar region Category: Medical Plan: Lumbar spine MRI done back in 08/2019 revealed (+) moderate facet arthropathy and a posterior disc protrusion at L4-L5 that extends into the neural foramina but there is no nerve root impingement and no central canal stenosis. There were also milder spondylitic and facet arthropathic changes at other levels Repeat lumbar spine x-rays done in August 2023 revealed only (+) exaggerated lordosis of the lumbar spine Advised that before her insurance will approve a repeat lumbar spine MRI, she will likely have to trial and fail physical therapy first before that will be approved The patient reports sciatic nerve pain radiating from the lower back to both legs, predominantly affecting the right side. Management includes the use of gabapentin as needed for pain relief. Reinforced activity and weight-lifting restrictions Continue naproxen 500 mg b.i.d. p.r.n., tramadol 50 mg b.i.d. p.r.n. (6) Right-sided low back pain with sciatica: Code(s): M54.41 - Lumbago with sciatica, right side Category: Medical Qualifiers: Chronicity: acute Sciatica laterality: sciatica of right side Qualified Code(s): M54.41 - Lumbago with sciatica, right side Plan: Reinforced activity and weight-lifting restrictions X-rays of the SI joints done a few months ago came back normal/negative (7) Impaired fasting glucose: Code(s): R73.01 - Impaired fasting glucose Category: Medical Plan: A1c is 5.6% in office Reinforced low sugar/carbohydrate diet and activity as tolerated He will rechecked fasting glucose in 3 months (8) Fibromyalgia: Code(s): M79.7 - Fibromyalgia Category: Medical Plan: She has been advised by rheumatology last year that a lot of her symptoms, including her myalgia, are consistent with fibromyalgia She is again encouraged to exercise regularly to help manage her fibromyalgia symptoms Continue Gabapentin 100 mg Q HS (9) Carpal tunnel syndrome, bilateral: Code(s): G56.03 - Carpal tunnel syndrome, bilateral upper limbs Category: Medical Plan: EMG and NCV of both upper extremities done last year in August 2023 revealed (+) 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 She also has early carpal tunnel syndrome on the left. 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 - Tibial collateral bursitis [Janell-Stieda], unspecified leg Category: Medical Qualifiers: Laterality: unspecified laterality Qualified Code(s): M76.40 - Tibial collateral bursitis [Janell-Stieda], unspecified leg Plan: X-rays of both knees done late last year revealed findings of Chronic Janell-Stieda complex Follow up with orthopedics as scheduled (11) Bilateral hip pain: Code(s): M25.551 - Pain in right hip; M25.552 - Pain in left hip Category: Medical Plan: Patient is advised that her hip x-rays done last year came back normal (12) Insomnia: Code(s): G47.00 - Insomnia, unspecified Category: Medical Qualifiers: Insomnia type: unspecified Qualified Code(s): G47.00 - Insomnia, unspecified Plan: Sleep hygiene reinforced Continue Trazodone 50 mg Q HS PRN (13) Bipolar affective disorder: Code(s): F31.9 - Bipolar disorder, unspecified Category: Medical Qualifiers: Active/Remission status: currently active Current bipolar episode type: mixed Current episode severity: unspecified Qualified Code(s): F31.60 - Bipolar disorder, current episode mixed, unspecified Plan: Continue Sertraline 50mg, Aripiprazole 20 mg Q HS and Oxcarbazepine 300 mg BID Follow up with psychiatry as scheduled (14) Smoker: Comment: SHE CLAIMS THAT SHE IS SMOKING 7-10 CIGARETTES A DAY AND TRYING TO CUT DOWN. AGAIN COUNSELED THAT SHE SHOULD TRY TO QUIT COMPLETELY. Code(s): F17.200 - Nicotine dependence, unspecified, uncomplicated Category: Social Hx Plan: Patient is counseled again on complete smoking cessation (15) Morbid obesity with BMI of 40.0-44.9, adult: Code(s): E66.01 - Morbid (severe) obesity due to excess calories; Z68.41 - Body mass index [BMI] 40.0-44.9, adult Category: Medical Plan: Reinforced diet/exercise as tolerated/lose weight She was previously referred to weight management and for bariatric surgery consideration but patient decided to try some medications first Will now start her on a trial of Zepbound 2.5 mg SQ once a week Plan Follow up in 3 months Orders: Orders Comprehensive [place]. Panel Fast Today E66.01 - Morbid (severe) obesity due to excess calories, E78.2 - Mixed hyperlipidemia, F31.60 - Bipolar disorder, current episode mixed, unspecified, F41.9 - Anxiety disorder, unspecified, G47.00 - Insomnia, unspecified, G47.33 - Obstructive sleep apnea (adult) (pediatric), I10 - Essential (primary) hypertension, M25.50 - Pain in unspecified joint, R35.0 - Frequency of micturition, R53.83 - Other fatigue, R73.01 - Impaired fasting glucose, Z68.41 - Body mass index [BMI] 40.0-44.9, adult, Z91.09 - Other allergy status, other than to drugs and biological substances Lipid Panel Today E66.01 - Morbid (severe) obesity due to excess calories, E78.2 - Mixed hyperlipidemia, F31.60 - Bipolar disorder, current episode mixed, unspecified, F41.9 - Anxiety disorder, unspecified, G47.00 - Insomnia, unspecified, G47.33 - Obstructive sleep apnea (adult) (pediatric), I10 - Essential (primary) hypertension, M25.50 - Pain in unspecified joint, R35.0 - Frequency of micturition, R53.83 - Other fatigue, R73.01 - Impaired fasting glucose, Z68.41 - Body mass index [BMI] 40.0-44.9, adult, Z91.09 - Other allergy status, other than to drugs and biological substances TSH reflex Free T4 Today E66.01 - Morbid (severe) obesity due to excess calories, E78.2 - Mixed hyperlipidemia, F31.60 - Bipolar disorder, current episode mixed, unspecified, F41.9 - Anxiety disorder, unspecified, G47.00 - Insomnia, unspecified, G47.33 - Obstructive sleep apnea (adult) (pediatric), I10 - Essential (primary) hypertension, M25.50 - Pain in unspecified joint, R35.0 - Frequency of micturition, R53.83 - Other fatigue, R73.01 - Impaired fasting glucose, Z68.41 - Body mass index [BMI] 40.0-44.9, adult, Z91.09 - Other allergy status, other than to drugs and biological substances Complete Blood Count Auto Diff Today E66.01 - Morbid (severe) obesity due to excess calories, E78.2 - Mixed hyperlipidemia, F31.60 - Bipolar disorder, current episode mixed, unspecified, F41.9 - Anxiety disorder, unspecified, G47.00 - Insomnia, unspecified, G47.33 - Obstructive sleep apnea (adult) (pediatric), I10 - Essential (primary) hypertension, M25.50 - Pain in unspecified joint, R35.0 - Frequency of micturition, R53.83 - Other fatigue, R73.01 - Impaired fasting glucose, Z68.41 - Body mass index [BMI] 40.0-44.9, adult, Z91.09 - Other allergy status, other than to drugs and biological substances UA CC w/rflx Micro + Cult Today E66.01 - Morbid (severe) obesity due to excess calories, E78.2 - Mixed hyperlipidemia, F31.60 - Bipolar disorder, current episode mixed, unspecified, F41.9 - Anxiety disorder, unspecified, G47.00 - Insomnia, unspecified, G47.33 - Obstructive sleep apnea (adult) (pediatric), I10 - Essential (primary) hypertension, M25.50 - Pain in unspecified joint, R35.0 - Frequency of micturition, R53.83 - Other fatigue, R73.01 - Impaired fasting glucose, Z68.41 - Body mass index [BMI] 40.0-44.9, adult, Z91.09 - Other allergy status, other than to drugs and biological substances Vitamin D 25-OH Total Today E66.01 - Morbid (severe) obesity due to excess calories, E78.2 - Mixed hyperlipidemia, F31.60 - Bipolar disorder, current episode mixed, unspecified, F41.9 - Anxiety disorder, unspecified, G47.00 - Insomnia, unspecified, G47.33 - Obstructive sleep apnea (adult) (pediatric), I10 - Essential (primary) hypertension, M25.50 - Pain in unspecified joint, R35.0 - Frequency of micturition, R53.83 - Other fatigue, R73.01 - Impaired fasting glucose, Z68.41 - Body mass index [BMI] 40.0-44.9, adult, Z91.09 - Other allergy status, other than to drugs and biological substances Medications: New tirzepatide (weight loss) (Zepbound) for 4 weeks 2.5 mg (0.5 mL) subcut QWEEK 2 mL 0RF E66.01 - Morbid (severe) obesity due to excess calories, F31.60 - Bipolar disorder, current episode mixed, unspecified, G47.33 - Obstructive sleep apnea (adult) (pediatric), G89.29 - Other chronic pain, I10 - Essential (primary) hypertension, M25.50 - Pain in unspecified joint, M25.561 - Pain in right knee, M25.562 - Pain in left knee, M51.362 - Other intervertebral disc degeneration, lumbar region with discogenic back pain and lower extremity pain, M54.41 - Lumbago with sciatica, right side, M76.40 - Tibial collateral bursitis [Janell-Stieda], unspecified leg, M79.7 - Fibromyalgia, R73.01 - Impaired fasting glucose, Z68.41 - Body mass index [BMI] 40.0-44.9, adult
[2025-07-28 09:14] VITALS: BP 102/70; PULSE 79; RESP 18; TEMP 36.3; O2SAT 97; BMI 41.0
--- OUTSIDE RECORDS SUMMARY | 2025-07-28 10:21 | XMS_ITS | Clinical Summary ---
Author Organization [employer] Address [address] [place] [address] Care Team Providers Care Occupational Therapist Assistants Name Role Phone Unavailable Primary Care Provider [...] Mammogram 12/27/2019 12/26/2017 COVID-19 Vaccine ( season) 2025 09/28/2021, 01/21/2021, 12/24/2020 Influenza Vaccine (#1) 2025 3, 07/07/2022, 09/22/2021, Additional history exists DTaP/Tdap/Td [...] Years) and At-Risk Patients (6 to 49) Years Aged Out No longer eligible based on [...] Procedure Note Provider, MD José Miguel - 12/31/2022 Refer to the Notes tab for result details Legacy Procedure: DIGITAL BILATERAL SCREEN 1 Annmarie Gonsalez MD IM BI PROCEDURES Final Resul t from Last 3 Months or Most Recently Relevant to Health Maintenance Insurance [facility] ([facility])
== END 2025-07-28 10:39 | disposition home or self-care (01) ==
LOC: HO.HMCH 09:07
PROVIDERS: PCP Internal Medicine
DX: F41.9 Anxiety disorder, unspecified (principal); E78.2 Mixed hyperlipidemia; G47.33 Obstructive sleep apnea (adult) (pediatric); I10 Essential (primary) hypertension; M51.369 Other intervertebral disc degeneration, lumbar region without mention of lumbar back pain or lower extremity pain; M54.41 Lumbago with sciatica, right side; R73.01 Impaired fasting glucose; M79.7 Fibromyalgia; F31.60 Bipolar disorder, current episode mixed, unspecified; E66.01 Morbid (severe) obesity due to excess calories; Z68.41 Body mass index [BMI] 40.0-44.9, adult; G56.03 Carpal tunnel syndrome, bilateral upper limbs; M76.40 Tibial collateral bursitis [Pellegrini-Stieda], unspecified leg; M25.551 Pain in right hip; M25.552 Pain in left hip; G47.00 Insomnia, unspecified; F17.200 Nicotine dependence, unspecified, uncomplicated

== ENCOUNTER → 2025-07-28 09:06 | Outpatient (BNVA) | payer OTHER, SELFPAY | PROVIDERS: PCP Internal Medicine | DX: M79.7 Fibromyalgia (principal); M51.360 Other intervertebral disc degeneration, lumbar region with discogenic back pain only; I10 Essential (primary) hypertension; G47.33 Obstructive sleep apnea (adult) (pediatric); K21.9 Gastro-esophageal reflux disease without esophagitis; G56.03 Carpal tunnel syndrome, bilateral upper limbs; F41.9 Anxiety disorder, unspecified; M54.41 Lumbago with sciatica, right side; E78.2 Mixed hyperlipidemia; R73.01 Impaired fasting glucose; M76.40 Tibial collateral bursitis [Pellegrini-Stieda], unspecified leg; M25.551 Pain in right hip; M25.552 Pain in left hip; G47.00 Insomnia, unspecified; F31.60 Bipolar disorder, current episode mixed, unspecified; E66.01 Morbid (severe) obesity due to excess calories; F17.210 Nicotine dependence, cigarettes, uncomplicated; Z68.41 Body mass index [BMI] 40.0-44.9, adult | CPT/HCPCS: 99212 ==